=== PATIENT | female | born 1970 | race Caucasian/White ===

== ENCOUNTER 2016-12-14 10:18 | Emergency (ER) | payer OTHER ==
--- NOTE | 2016-12-14 13:46 | DIAGNOSTIC IMAGING REPORT ---
PROCEDURE: CT LOWER EXT W/CONTRAST-RIGHT INDICATION: SWELLING, TENDER, WARMTH, ABNORMAL US TECHNIQUE: 125 ml of Isovue 300 were administered IV and axial scans obtained from the right hip to the right knee. COMPARISON: 98 venous duplex ultrasound 12/14/2016. FINDINGS: There are several right inguinal lymph nodes, largest 1.3 x 2.5 cm. There are also some mildly prominent right external iliac lymph nodes. There is mild subcutaneous edema of the right thigh and right buttock. No evidence of a mass or fluid collection. Musculature is unremarkable. Vasculature is unremarkable. Bones are unremarkable. Pelvic structures are unremarkable. IMPRESSION: 1. No evidence of an abscess or fluid collection 2. Mild right inguinal adenopathy 3. Right thigh subcutaneous edema 4. Results discussed with Dr. Crespo
--- NOTE | 2016-12-14 14:24 | ED CLINICAL REPORT ---
Clinical Report - Physicians/Mid Levels [facility] [address] [place] [address] 12/14/2016 10:21 Patient: FELICIANO BLACKMAN Time Seen: 1050. Arrived- By private vehicle. Historian- patient. HISTORY OF PRESENT ILLNESS Chief Complaint: LOWER EXTREMITY SWELLING. This started past few days and is still present. It was abrupt in onset and has been constant but is not gone now. Severity is described as being severe. The quality is noted to be sharp. No radiation. The patient has had redness and swelling. She has had difficulty walking. No bladder dysfunction, bowel dysfunction, sensory loss or motor loss. Patient denies an injury. Similar symptoms previously: None. Recent medical care: The patient was seen recently in a clinic. ( otal to the emergency department for evaluation of DVT). REVIEW OF SYSTEMS No chest pain or difficulty breathing. All systems otherwise negative, except as recorded above. PAST HISTORY See nurses notes. Medications: Spironolactone Oral 50 mg, daily. Gabapentin Oral 800mg TID . Lasix Oral 40 mg, daily. Levothyroxine Sodium Oral 100 mcg, daily. Methadone 85mg daily . Allergies: Acetaminophen. (liver disease- not suppposed to take it ) Haldol. (tongue swells up ) PCN.(rash) Tylenol #3 - rash. SOCIAL HISTORY Smoker- current status unknown. History of drug use: marijuana. No alcohol use. No recent travel. Is a local resident. ADDITIONAL NOTES The nursing notes have been reviewed. PHYSICAL EXAM Vital Signs: 12/14/2016 10:25 BP: 140/92. HR: 93. RR: 22. O2 saturation: 97%. Temp: 98.7 F. Pain level now: 9/10. Oxygen saturation normal. Appearance: Alert. Oriented X3. No acute distress. Eyes: Pupils equal, round and reactive to light. Eyes normal inspection. ENT: Ears normal. Nose normal. Pharynx normal. Neck: Normal inspection. Neck supple. CVS: Normal heart rate and rhythm. Heart sounds normal. Respiratory: No respiratory distress. Breath sounds normal. Abdomen: Soft and nontender. No organomegaly. Back: Normal inspection. No tenderness. ROM normal. Skin: Skin intact. Skin warm and dry. Normal skin color. Normal skin turgor. Extremities: (isolated swelling, warmth, erythema to the medial aspect of the right lower extremity. Extends to the mid thigh and goes up to the proximal thigh. There is indurated. No crepitus. No signs of Imtiaz's gangrene. No masses. No area of fluctuance. Compartments are soft. Patient is neurovascular intact.). Extremities otherwise negative. Neuro: Oriented X 3. No motor deficit. No sensory deficit. LABS, X-RAYS, AND EKG Lower Extremity Sonography: PROCEDURE: US VENOUS - RIGHT EXT INDICATION: PAIN AND SWELLING TECHNIQUE: Duplex sonography of the deep venous system in the right lower extremity was performed. Compression and augmentation techniques were used. COMPARISON: None. FINDINGS: Compression maneuver and common femoral vein was limited secondary to some moderate edema and uncooperative patient. Each interrogated segment of deep vein from the common femoral vein into the calf veins demonstrates normal compressibility, augmentation and/or color Doppler flow without filling defect. Multiple enlarged groin lymph nodes are visible. There is a fluid-containing tract from the skin surface to the region of the right common femoral vein. No other perivascular fluid in the soft tissues. No evidence of pseudoaneurysm or signs of AV fistula. IMPRESSION: 1. No deep venous thrombosis in the right lower extremity. 2. Fluid-containing tract from the skin surface to the underlying common femoral vein without evidence of venous thrombosis or AV fistula. The exam was performed by a pyrotechnician. The study was independently viewed by me and interpreted by the radiologist. The study was discussed with the radiologist (Via PACS). Note - Special Studies: PROCEDURE: CT LOWER EXT W/CONTRAST-RIGHT INDICATION: SWELLING, TENDER, WARMTH, ABNORMAL US TECHNIQUE: 125 ml of Isovue 300 were administered IV and axial scans obtained from the right hip to the right knee. COMPARISON: 98 venous duplex ultrasound 12/14/2016. FINDINGS: There are several right inguinal lymph nodes, largest 1.3 x 2.5 cm. There are also some mildly prominent right external iliac lymph nodes. There is mild subcutaneous edema of the right thigh and right buttock. No evidence of a mass or fluid collection. Musculature is unremarkable. Vasculature is unremarkable. Bones are unremarkable. Pelvic structures are unremarkable. IMPRESSION: 1. No evidence of an abscess or fluid collection 2. Mild right inguinal adenopathy 3. Right thigh subcutaneous edema interpreted by radiology. Reviewed by me. Agree with findings. Discussed via phone and packs. Laboratory Tests: UA-Culture if indicated: (ERIC: 12/14/2016 10:25) ( [facility] 12/14/2016 11:07) Final results Test Result Flag Units (Reference) URINE COLOR YELLOW URINE APPEARANCE CLEAR URINE GLUCOSE NEGATIVE (NEGATIVE) URINE BILIRUBIN NEGATIVE (NEGATIVE) URINE KETONE NEGATIVE (NEGATIVE) URINE SPECIFIC GRAVITY 1.010 (1.010-1.030) URINE PH 7.5 (5.0-8.0) URINE PROTEIN NEGATIVE (NEGATIVE) URINE UROBILINOGEN 1.0 EU/dL (0.2-1.0) URINE NITRITE NEGATIVE (NEGATIVE) URINE BLOOD NEGATIVE (NEGATIVE) URINE LEUK ESTERASE NEGATIVE (NEGATIVE) URINE RBC NONE SEEN rbc/hpf (0-1) URINE WBC NONE SEEN wbc/hpf (0-1) URINE EPITHELIAL CELLS NONE SEEN EPI/hpf (0-5) URINE BACTERIA NONE SEEN (NONE SEEN) URINE COMMENT CULT NOT INDICATED URINE CULTURES ARE SET-UP BASED ON THE FOLLOWING CRITERIA:POSITIVE NITRITEPOSITIVE LEUKOCYTE ESTERASEGREATER THAN 10 WHITE BLOOD CELLSMODERATE (2+) OR GREATER BACTERIA Urine: (ERIC: 12/14/2016 10:25) ( [facility] 12/14/2016 11:29) Final results Test Result Flag Units (Reference) URINE NEGATIVE CBC w Diff: (ERIC: 12/14/2016 10:52) ( [facility] 12/14/2016 12:07) Final results Test Result Flag Units (Reference) WHITE BLOOD COUNT 5.4 K/uL (4.5-11.5) RED BLOOD COUNT 3.74 L M/uL (4.00-5.20) HEMOGLOBIN 9.6 L gm/dL (12.0-16.0) HEMATOCRIT 29.2 L % (36.0-46.0) MEAN CELL VOLUME 78 L fL (80-100) MEAN CORPUSCULAR HGB 26 pg (26-34) MEAN CORPUSCULAR HGB CONC 33 g/dL (31-37) RED CELL DISTRIBUTION WIDTH 21.2 H % (11.6-14.8) PLATELET COUNT 80 L K/uL (150-400) NEUTROPHIL % 68.7 % (50-75) LYMPH % 18.2 L % (25-40) MONO % 8.8 % (3-14) EOSINOPHIL % 3.3 % (0-4) BASOPHIL % 1.0 % (0-2) RBC MORPHOLOGY 3+ ANISOCYTOSIS~~1+ OVALOCYTES~~1+ SCHISTOCYTES~~1+ HYPOCHROMIA~~PLTS DEC~~GIANT PLTS SED RATE WESTERGREN 41 H mm/hr (0-20) Lactate, Serum: (ERIC: 12/14/2016 11:15) ( [facility] 12/14/2016 12:24) Final results Test Result Flag Units (Reference) LACTIC ACID 1.2 mmol/L (0.4-2.0) BNP: (ERIC: 12/14/2016 11:15) ( [facility] 12/14/2016 12:07) Final results Test Result Flag Units (Reference) B-TYPE NATRIURETIC PEPTIDE 44.8 pg/ml (5-100) CMP: (ERIC: 12/14/2016 10:52) ( [facility] 12/14/2016 11:42) Final results Test Result Flag Units (Reference) GLUCOSE 105 mg/dL (70-110) BUN 9 mg/dL (7-18) CREATININE 0.7 mg/dL (0.6-1.3) Estimated GFR >60 mL/min Estimated GFR- >60 mL/min Note: Persistent reduction over 3 months in eGFR<60 mL/min/1.73 m2 defines CKD. Patients with eGFR values>=60 mL/min/1.73 m2 may also have CKD if evidence ofpersistent proteinuria. Additional information may be foundat [email or web address].org. SODIUM 141 mmol/L (136-145) POTASSIUM 4.5 mmol/L (3.5-5.1) CHLORIDE 106 mmol/L (98-107) CARBON DIOXIDE 26 mmol/L (21-32) CALCIUM 8.1 L mg/dL (8.5-10.1) TOTAL PROTEIN 7.7 g/dL (6.4-8.2) ALBUMIN 2.7 L g/dL (3.3-5.0) BILIRUBIN, TOTAL 0.4 mg/dL (0.0-1.0) ALKALINE PHOSPHATASE 200 H U/L (46-116) AST (SGOT) 56 H U/L (15-37) ALT (SGPT) 42 U/L (12-78) TROPONIN I <0.05 ng/mL (0.00-1.5) TROPONIN REFERENCE RANGE:<0.1 NEGATIVE0.1-1.5 INDETERMINANT>1.5 POSITIVE C-REACTIVE PROTEIN 1.3 H mg/dL (0.0-0.9) . PROGRESS AND PROCEDURES Course of Care: The patient is a pleasant 46 her old female. Very large right-sided leg swelling and pain. At this time differential diagnosis includes cellulitis versus abscess versus DVT. Pain medication as been offered. Patient is agreeable to the treatment plan as far as for workup. We'll be signing patient with ultrasound and laboratory studies. The patient's workup was remarkable for the findings above. Patient with a tract noted. Will be concern for the tract going deeper into the patient's pelvis. Would also be concerned for other signs of infection such as gangrene and free air. Because of the patient's pain level and area of infection,would like to evaluate with CT scan with contrast. Patient is agreeable to treatment plan. The rest of the patient's workup is noteo be unremarkable. CT scan does not show any significant signs of deeper infection or mass. Patient does have edema noted on CT scan. The rest of the findings are noted as above. Patient be treated with antibiotics. Patient is nontoxic and in no acute distress. Do not feel patient is septic. Because the patient's negative workup here in emergency department and lack of systemic findings, the patient is stable outpatient candidate. Patient is reliable. Discussed with patient her workup here in emergency department including diagnosis, home care, follow-up, and return precautions. All questions have been answered. The patient expressed understanding of these instructions and was agreeable to that. Disposition: Discharged. Condition: good. CLINICAL IMPRESSION Acute right thigh pain. Cellulitis of the right thigh. INSTRUCTIONS Warnings: SEDATIVE MEDICATION: You were given sedative medication during your visit. Do not drive or operate dangerous machinery. CONTROLLED SUBSTANCE WARNINGS. GENERAL WARNINGS: Return or contact your physician immediately if your condition worsens or changes unexpectedly, if not improving as expected, or if other problems arise. Specifically return if pain, vomiting, bleeding, breathing difficulty or fever. Your Current Medications: CONTINUE TAKING THE FOLLOWING MEDICATIONS: Gabapentin Oral : 800mg TID. Lasix Oral : 40 mg daily. Levothyroxine Sodium Oral : 100 mcg daily. Methadone* : 85mg daily. Spironolactone Oral : 50 mg daily. Prescription Medications: Doxycycline 100 mg: Take 1 capsule orally every 12 hours for 10 days. No refill. (disp 20 caps) morphine sulfate immediate release 15 mg tabs. take PO as needed for pain every 8 hours as needed. Disp 6 tabs. No refills. Substitution allowed. Follow-up: Return to the emergency department as needed. Follow up with your doctor in two days. Reason for referral: recheck today's concerns. Summary of care provided to patient via paper. Screening today revealed the patient's blood pressure to be in the normal range. The patient should follow up with a primary care provider for blood pressure management. Understanding of the discharge instructions verbalized by patient. (Electronically signed by Frank Crespo Dr. 12/18/2016 16:43)
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
--- NOTE | 2016-12-14 14:24 | ED ORDER SUMMARY ---
..... Patient: FELICIANO BLACKMAN OrderSheet VisitID: [id number] [place] [address] 46y, F Registration Date/Time: 12/14/2016 ORDER SHEET Weight: 90.7 kg (stated) Allergies: Haldol, PCN, Tylenol #3 - rash, Acetaminophen GENERAL ORDERS: UA-Culture if indicated Urgent (10:41 12/14/2016 DDean R.N. per protocol) (Ack 10:46 Charissa LA TechQuin) (11:11 DDean R.N.) US Venous Right Urgent (11:03 12/14/2016 Red Lr) (Ack 11:11 Charissa Farrell) (12:05 DDean R.N.) CBC w Diff Urgent (11:12/14/2016 Red Lr) (Ack 11:11 Charissa Farrell) (11:11 DDean R.N.) CMP Urgent (11:04 12/14/2016 Red Lr) (Ack 11:11 Charissa Farrell) (11:11 DDean R.N.) Sed Rate Urgent (11:04 12/14/2016 Red Lr) (Ack 11:11 Charissa Farrell) (11:11 DDean R.N.) CRP Urgent (11:12/14/2016 Red Lr) (Ack 11:11 Charissa Farrell) (11:12 DDean R.N.) Troponin-I Urgent (11:04 12/14/2016 Red Lr) (Ack 11:11 Charissa Farrell) (11:11 DDean R.N.) BNP Urgent (11:12/14/2016 Red Lr) (Ack 11:11 Charissa Farrell) (11:11 DDean R.N.) Urine Urgent (11:12/14/2016 Red Lr) (Ack 11:11 Charissa Farrell) (11:11 DDean R.N.) Pulse oximeter (11:12/14/2016 Red Lr) (Ack 11:11 Charissa ER Tech1) (11:11 DDean R.N.) Lactate, Serum Urgent (11:04 12/14/2016 Red Lr) (Ack 11:11 Charissa ER Tech1) (11:27 DDean R.N.) Urine Drug Screen Urgent (12:54 12/14/2016 Red Lr) (Ack 12:57 Charissa ER Tech1) (13:00 DDean R.N.) CT Lower Extremity With Contrast - Right Urgent (12:55 12/14/2016 Red Lr) (Ack 12:57 Charissa ER Tech1) (13:23 RFay) MEDICATION ORDERS: Doxycycline Hyclate PO 100 mg (NOW) (14:23 12/14/2016 Red Lr) (Ack 14:34 DDean R.N.) IV FLUIDS: Morphine IV 4 mg (HIGH ALERT MEDICATION, NOW) (11:03 12/14/2016 Red Lr) (Ack 11:28 DDean R.N.) (12:05 DDean R.N.) IV Saline Lock (11:04 12/14/2016 Red Lr) (Ack 11:28 DDean R.N.) (12:05 DDean R.N.) Dilaudid IV 1 mg (once now. may repeat in 15 minutes if pain > 5/10 ) (12:53 12/14/2016 Red Lr) (12:59 DDean R.N.) ORDER SHEET NOTES: [Electronically signed by Casi Navarrete R.N. (14:51 12/14/2016)] [Electronically signed by Frank Crespo Dr. (16:43 12/18/2016)] [Electronically locked/signed by Casi Navarrete R.N. (14:51 12/14/2016)]
--- NOTE | 2016-12-14 14:24 | ED ORDER SUMMARY ---
..... Patient: FELICIANO BLACKMAN OrderSheet [facility] VisitID: [id number] [place] [address] 46y, F Registration Date/Time: 12/14/2016 ORDER SHEET Weight: 90.7 kg (stated) Allergies: Haldol, PCN, Tylenol #3 - rash, Acetaminophen GENERAL ORDERS: UA-Culture if indicated Urgent (10:41 12/14/2016 DDean R.N. per protocol) (Ack 10:46 Charissa LA TechQuin) (11:11 DDean R.N.) US Venous Right Urgent (11:03 12/14/2016 Red Lr) (Ack 11:11 Charissa Farrell) (12:05 DDean R.N.) CBC w Diff Urgent (11:12/14/2016 Red Lr) (Ack 11:11 Charissa Farrell) (11:11 DDean R.N.) CMP Urgent (11:04 12/14/2016 Red Lr) (Ack 11:11 Charissa Farrell) (11:11 DDean R.N.) Sed Rate Urgent (11:04 12/14/2016 Red Lr) (Ack 11:11 Charissa Farrell) (11:11 DDean R.N.) CRP Urgent (11:12/14/2016 Red Lr) (Ack 11:11 Charissa Farrell) (11:12 DDean R.N.) Troponin-I Urgent (11:04 12/14/2016 Red Lr) (Ack 11:11 Charissa Farrell) (11:11 DDean R.N.) BNP Urgent (11:12/14/2016 Red Lr) (Ack 11:11 Charissa Farrell) (11:11 DDean R.N.) Urine Urgent (11:12/14/2016 Red Lr) (Ack 11:11 Charissa Farrell) (11:11 DDean R.N.) Pulse oximeter (11:12/14/2016 Red Lr) (Ack 11:11 Charissa ER Tech1) (11:11 DDean R.N.) Lactate, Serum Urgent (11:04 12/14/2016 Red Lr) (Ack 11:11 Charissa ER Tech1) (11:27 DDean R.N.) Urine Drug Screen Urgent (12:54 12/14/2016 Red Lr) (Ack 12:57 Charissa ER Tech1) (13:00 DDean R.N.) CT Lower Extremity With Contrast - Right Urgent (12:55 12/14/2016 Red Lr) (Ack 12:57 Charissa ER Tech1) (13:23 RFay) MEDICATION ORDERS: Doxycycline Hyclate PO 100 mg (NOW) (14:23 12/14/2016 Red Lr) (Ack 14:34 DDean R.N.) IV FLUIDS: Morphine IV 4 mg (HIGH ALERT MEDICATION, NOW) (11:03 12/14/2016 Red Lr) (Ack 11:28 DDean R.N.) (12:05 DDean R.N.) IV Saline Lock (11:04 12/14/2016 Red Lr) (Ack 11:28 DDean R.N.) (12:05 DDean R.N.) Dilaudid IV 1 mg (once now. may repeat in 15 minutes if pain > 5/10 ) (12:53 12/14/2016 Red Lr) (12:59 DDean R.N.) ORDER SHEET NOTES: [Electronically signed by Casi Navarrete R.N. (14:51 12/14/2016)] [Electronically signed by Frank Crespo Dr. (16:43 12/18/2016)] [Electronically locked/signed by Casi Navarrete R.N. (14:51 12/14/2016)]
--- NOTE | 2016-12-14 15:28 | DIAGNOSTIC IMAGING REPORT ---
PROCEDURE: US VENOUS - RIGHT EXT INDICATION: PAIN AND SWELLING TECHNIQUE: Duplex sonography of the deep venous system in the right lower extremity was performed. Compression and augmentation techniques were used. COMPARISON: None. FINDINGS: Compression maneuver and common femoral vein was limited secondary to some moderate edema and uncooperative patient. Each interrogated segment of deep vein from the common femoral vein into the calf veins demonstrates normal compressibility, augmentation and/or color Doppler flow without filling defect. Multiple enlarged groin lymph nodes are visible. There is a fluid-containing tract from the skin surface to the region of the right common femoral vein. No other perivascular fluid in the soft tissues. No evidence of pseudoaneurysm or signs of AV fistula. IMPRESSION: 1. No deep venous thrombosis in the right lower extremity. 2. Fluid-containing tract from the skin surface to the underlying common femoral vein without evidence of venous thrombosis or AV fistula. 3. Preliminary results given by the technologist to the emergency room provider.
--- NOTE | 2016-12-18 16:43 | ED MAR SUMMARY ---
..... Medication Administration Record Formerly [facility] [address] [address] Patient: FELICIANO BLACKMAN Visit ID: [id number] 46y, F Weight: 90.7 kg Height/Length: 62 in BMI: 36.6 ALLERGIES: Acetaminophen, Haldol, PCN, Tylenol #3 - rash Given 11:55 12/14/2016 Casi Navarrete R.N. Medication Administered: MORPHINE [IVP], Dose: 4 mg IVP over 1 minute(s), Site: #1. Medication Ordered: Morphine IV 4 mg (HIGH ALERT MEDICATION, NOW). Given 12:54 12/14/2016 Casi Navarrete R.N. Medication Administered: DILAUDID [IVP] (HYDROMORPHONE HCL PF), Dose: 1 mg IVP over 1 minute(s), Site: #1 right wrist. Medication Ordered: Dilaudid IV 1 mg (once now. may repeat in 15 minutes if pain > 5/10 ). Given 13:36 12/14/2016 Casi Navarrete R.N. Medication Administered: DILAUDID [IVP] (HYDROMORPHONE HCL PF), Dose: 1 mg IVP over 1 minute(s), Site: #1 right wrist. Medication Ordered: Dilaudid IV 1 mg (once now. may repeat in 15 minutes if pain > 5/10 ).
--- NOTE | 2016-12-18 16:43 | ED DISCHARGE INSTRUCTIONS ---
Patient: FELICIANO BLACKMAN General Instructions [facility] VisitID: [id number] [place] [address] 46y, F Registration Date/Time: 12/14/2016 Acute right thigh pain. Cellulitis of the right thigh. INSTRUCTIONS Warnings: SEDATIVE MEDICATION: You were given sedative medication during your visit. Do not drive or operate dangerous machinery. CONTROLLED SUBSTANCE WARNINGS. GENERAL WARNINGS: Return or contact your physician immediately if your condition worsens or changes unexpectedly, if not improving as expected, or if other problems arise. Specifically return if pain, vomiting, bleeding, breathing difficulty or fever. Your Current Medications: CONTINUE TAKING THE FOLLOWING MEDICATIONS: Gabapentin Oral : 800mg TID. Lasix Oral : 40 mg daily. Levothyroxine Sodium Oral : 100 mcg daily. Methadone* : 85mg daily. Spironolactone Oral : 50 mg daily. Prescription Medications: Doxycycline 100 mg: Take 1 capsule orally every 12 hours for 10 days. No refill. (disp 20 caps) morphine sulfate immediate release 15 mg tabs. take PO as needed for pain every 8 hours as needed. Disp 6 tabs. No refills. Substitution allowed. Follow-up: Return to the emergency department as needed. Follow up with your doctor in two days. Reason for referral: recheck today's concerns. Summary of care provided to patient via paper. Screening today revealed the patient's blood pressure to be in the normal range. The patient should follow up with a primary care provider for blood pressure management. Understanding of the discharge instructions verbalized by patient. ADDITIONAL INFORMATION Doxycycline Monohydrate Oral tablet What is this medicine? DOXYCYCLINE (dox sarah damon) is a tetracycline antibiotic. It kills certain bacteria or stops their growth. It is used to treat many kinds of infections, like dental, skin, respiratory, and urinary tract infections. It also treats acne, Lyme disease, malaria, and certain sexually transmitted infections. How should I use this medicine? Take this medicine by mouth with a full glass of water. Follow the directions on the prescription label. It is best to take this medicine without food, but if it upsets your stomach take it with food. Take your medicine at regular intervals. Do not take your medicine more often than directed. Take all of your medicine as directed even if you think you are better. Do not skip doses or stop your medicine early. Talk to your 911 emergency services dispatcher regarding the use of this medicine in children. Special care may be needed. While this drug may be prescribed for children as young as 8 years old for selected conditions, precautions do apply. What side effects may I notice from receiving this medicine? Side effects that you should report to your doctor or health health care recruiter as soon as possible: allergic reactions like skin rash, itching or hives, swelling of the face, lips, or tongue difficulty breathing fever itching in the rectal or genital area pain on swallowing redness, blistering, peeling or loosening of the skin, including inside the mouth severe stomach pain or cramps unusual bleeding or bruising unusually weak or tired yellowing of the eyes or skin Side effects that usually do not require medical attention (report to your doctor or health health care recruiter if they continue or are bothersome): diarrhea loss of appetite nausea, vomiting What may interact with this medicine? antacids barbiturates control pills bismuth subsalicylate carbamazepine methoxyflurane other antibiotics phenytoin vitamins that contain iron warfarin What if I miss a dose? If you miss a dose, take it as soon as you can. If it is almost time for your next dose, take only that dose. Do not take double or extra doses. Where should I keep my medicine? Keep out of the reach of children. Store at room temperature, below 30 degrees C (86 degrees F). Protect from light. Keep container tightly closed. Throw away any unused medicine after the expiration date. Taking this medicine after the expiration date can make you seriously ill. What should I tell my health care provider before I take this medicine? They need to know if you have any of these conditions: liver disease long exposure to sunlight like working outdoors stomach problems like colitis an unusual or allergic reaction to doxycycline, tetracycline antibiotics, other medicines, foods, dyes, or preservatives or trying to get breast-feeding What should I watch for while using this medicine? Tell your doctor or health health care recruiter if your symptoms do not improve. Do not treat diarrhea with over the counter products. Contact your doctor if you have diarrhea that lasts more than 2 days or if it is severe and watery. Do not take this medicine just before going to bed. It may not dissolve properly when you lay down and can cause pain in your throat. Drink plenty of fluids while taking this medicine to also help reduce irritation in your throat. This medicine can make you more sensitive to the sun. Keep out of the sun. If you cannot avoid being in the sun, wear protective clothing and use sunscreen. Do not use sun lamps or tanning beds/booths. control pills may not work properly while you are taking this medicine. Talk to your doctor about using an extra method of control. If you are being treated for a sexually transmitted infection, avoid sexual contact until you have finished your treatment. Your sexual partner may also need treatment. Avoid antacids, aluminum, calcium, magnesium, and iron products for 4 hours before and 2 hours after taking a dose of this medicine. If you are using this medicine to prevent malaria, you should still protect yourself from contact with mosquitos. Stay in screened-in areas, use mosquito nets, keep your body covered, and use an insect repellent. You have been given the following additional information: Doxycycline Monohydrate Oral tablet (Electronically signed by Frank Crespo Dr. 12/18/2016 16:43)
--- NOTE | 2016-12-18 16:43 | ED MAR SUMMARY ---
..... Medication Administration Record [facility] [address] [place] [address] Patient: FELICIANO BLACKMAN Visit ID: [id number] 46y, F Weight: 90.7 kg Height/Length: 62 in BMI: 36.6 ALLERGIES: Acetaminophen, Haldol, PCN, Tylenol #3 - rash Given 11:55 12/14/2016 Casi Navarrete R.N. Medication Administered: MORPHINE [IVP], Dose: 4 mg IVP over 1 minute(s), Site: #1. Medication Ordered: Morphine IV 4 mg (HIGH ALERT MEDICATION, NOW). Given 12:54 12/14/2016 Casi Navarrete R.N. Medication Administered: DILAUDID [IVP] (HYDROMORPHONE HCL PF), Dose: 1 mg IVP over 1 minute(s), Site: #1 right wrist. Medication Ordered: Dilaudid IV 1 mg (once now. may repeat in 15 minutes if pain > 5/10 ). Given 13:36 12/14/2016 Casi Navarrete R.N. Medication Administered: DILAUDID [IVP] (HYDROMORPHONE HCL PF), Dose: 1 mg IVP over 1 minute(s), Site: #1 right wrist. Medication Ordered: Dilaudid IV 1 mg (once now. may repeat in 15 minutes if pain > 5/10 ).
--- NOTE | 2016-12-18 16:43 | ED DISCHARGE INSTRUCTIONS ---
Patient: FELICIANO BLACKMAN General Instructions Formerly [facility] VisitID: [id number] [place] [address] 46y, F Registration Date/Time: 12/14/2016 Acute right thigh pain. Cellulitis of the right thigh. INSTRUCTIONS Warnings: SEDATIVE MEDICATION: You were given sedative medication during your visit. Do not drive or operate dangerous machinery. CONTROLLED SUBSTANCE WARNINGS. GENERAL WARNINGS: Return or contact your physician immediately if your condition worsens or changes unexpectedly, if not improving as expected, or if other problems arise. Specifically return if pain, vomiting, bleeding, breathing difficulty or fever. Your Current Medications: CONTINUE TAKING THE FOLLOWING MEDICATIONS: Gabapentin Oral : 800mg TID. Lasix Oral : 40 mg daily. Levothyroxine Sodium Oral : 100 mcg daily. Methadone* : 85mg daily. Spironolactone Oral : 50 mg daily. Prescription Medications: Doxycycline 100 mg: Take 1 capsule orally every 12 hours for 10 days. No refill. (disp 20 caps) morphine sulfate immediate release 15 mg tabs. take PO as needed for pain every 8 hours as needed. Disp 6 tabs. No refills. Substitution allowed. Follow-up: Return to the emergency department as needed. Follow up with your doctor in two days. Reason for referral: recheck today's concerns. Summary of care provided to patient via paper. Screening today revealed the patient's blood pressure to be in the normal range. The patient should follow up with a primary care provider for blood pressure management. Understanding of the discharge instructions verbalized by patient. ADDITIONAL INFORMATION Doxycycline Monohydrate Oral tablet What is this medicine? DOXYCYCLINE (dox sarah damon) is a tetracycline antibiotic. It kills certain bacteria or stops their growth. It is used to treat many kinds of infections, like dental, skin, respiratory, and urinary tract infections. It also treats acne, Lyme disease, malaria, and certain sexually transmitted infections. How should I use this medicine? Take this medicine by mouth with a full glass of water. Follow the directions on the prescription label. It is best to take this medicine without food, but if it upsets your stomach take it with food. Take your medicine at regular intervals. Do not take your medicine more often than directed. Take all of your medicine as directed even if you think you are better. Do not skip doses or stop your medicine early. Talk to your elevators inspector regarding the use of this medicine in children. Special care may be needed. While this drug may be prescribed for children as young as 8 years old for selected conditions, precautions do apply. What side effects may I notice from receiving this medicine? Side effects that you should report to your doctor or health career counselor as soon as possible: allergic reactions like skin rash, itching or hives, swelling of the face, lips, or tongue difficulty breathing fever itching in the rectal or genital area pain on swallowing redness, blistering, peeling or loosening of the skin, including inside the mouth severe stomach pain or cramps unusual bleeding or bruising unusually weak or tired yellowing of the eyes or skin Side effects that usually do not require medical attention (report to your doctor or health career counselor if they continue or are bothersome): diarrhea loss of appetite nausea, vomiting What may interact with this medicine? antacids barbiturates control pills bismuth subsalicylate carbamazepine methoxyflurane other antibiotics phenytoin vitamins that contain iron warfarin What if I miss a dose? If you miss a dose, take it as soon as you can. If it is almost time for your next dose, take only that dose. Do not take double or extra doses. Where should I keep my medicine? Keep out of the reach of children. Store at room temperature, below 30 degrees C (86 degrees F). Protect from light. Keep container tightly closed. Throw away any unused medicine after the expiration date. Taking this medicine after the expiration date can make you seriously ill. What should I tell my health care provider before I take this medicine? They need to know if you have any of these conditions: liver disease long exposure to sunlight like working outdoors stomach problems like colitis an unusual or allergic reaction to doxycycline, tetracycline antibiotics, other medicines, foods, dyes, or preservatives or trying to get breast-feeding What should I watch for while using this medicine? Tell your doctor or health career counselor if your symptoms do not improve. Do not treat diarrhea with over the counter products. Contact your doctor if you have diarrhea that lasts more than 2 days or if it is severe and watery. Do not take this medicine just before going to bed. It may not dissolve properly when you lay down and can cause pain in your throat. Drink plenty of fluids while taking this medicine to also help reduce irritation in your throat. This medicine can make you more sensitive to the sun. Keep out of the sun. If you cannot avoid being in the sun, wear protective clothing and use sunscreen. Do not use sun lamps or tanning beds/booths. control pills may not work properly while you are taking this medicine. Talk to your doctor about using an extra method of control. If you are being treated for a sexually transmitted infection, avoid sexual contact until you have finished your treatment. Your sexual partner may also need treatment. Avoid antacids, aluminum, calcium, magnesium, and iron products for 4 hours before and 2 hours after taking a dose of this medicine. If you are using this medicine to prevent malaria, you should still protect yourself from contact with mosquitos. Stay in screened-in areas, use mosquito nets, keep your body covered, and use an insect repellent. You have been given the following additional information: Doxycycline Monohydrate Oral tablet (Electronically signed by Farnk Crespo Dr. 12/18/2016 16:43)
--- NOTE | 2016-12-18 16:43 | ED MED RECONCILIATION SUMMARY ---
Patient: FELICIANO BLACKMAN Medication Reconciliation Report [facility] VisitID: [id number] [address] [place] [address] 46y, F Registration Date/Time: 12/14/2016 Weight: 90.7 kg Height/Length: 62 in. BMI: 36.6 ALLERGIES: Acetaminophen, Haldol, PCN, Tylenol #3 - rash The patient's Home Medications are listed below: CONTINUE TAKING THE FOLLOWING MEDICATIONS: Gabapentin Oral 800mg TID Lasix Oral 40 mg, daily Levothyroxine Sodium Oral 100 mcg, daily Methadone 85mg daily Spironolactone Oral 50 mg, daily The source(s) of the original Home Medication information: Not obtained. The following Medications were given to the patient in the Emergency Department: Morphine [IVP] IVP 4 mg, administered: 12/14/2016 11:55:00 AM Dilaudid [IVP] IVP 1 mg, administered: 12/14/2016 12:54:00 PM Dilaudid [IVP] IVP 1 mg, administered: 12/14/2016 1:36:00 PM The following Medications were prescribed to the patient: morphine sulfate immediate release 15 mg tabs. take PO as needed for pain every 8 hours as needed. Disp 6 tabs. No refills. Substitution allowed. -- Frank Crespo Dr. Doxycycline 100 mg: Take 1 capsule orally every 12 hours for 10 days. No refill.(disp 20 caps) -- Frank Crespo Dr.
--- NOTE | 2016-12-18 16:43 | ED MED RECONCILIATION SUMMARY ---
Patient: FELICIANO BLACKMAN Medication Reconciliation Report [facility]erg[facility] VisitID: [id number] [address] [place] [address] 46y, F Registration Date/Time: 12/14/2016 Weight: 90.7 kg Height/Length: 62 in. BMI: 36.6 ALLERGIES: Acetaminophen, Haldol, PCN, Tylenol #3 - rash The patient's Home Medications are listed below: CONTINUE TAKING THE FOLLOWING MEDICATIONS: Gabapentin Oral 800mg TID Lasix Oral 40 mg, daily Levothyroxine Sodium Oral 100 mcg, daily Methadone 85mg daily Spironolactone Oral 50 mg, daily The source(s) of the original Home Medication information: Not obtained. The following Medications were given to the patient in the Emergency Department: Morphine [IVP] IVP 4 mg, administered: 12/14/2016 11:55:00 AM Dilaudid [IVP] IVP 1 mg, administered: 12/14/2016 12:54:00 PM Dilaudid [IVP] IVP 1 mg, administered: 12/14/2016 1:36:00 PM The following Medications were prescribed to the patient: morphine sulfate immediate release 15 mg tabs. take PO as needed for pain every 8 hours as needed. Disp 6 tabs. No refills. Substitution allowed. -- Frank Crespo Dr. Doxycycline 100 mg: Take 1 capsule orally every 12 hours for 10 days. No refill.(disp 20 caps) -- Frank Crespo Dr.
== END 2016-12-14 14:35 | disposition home or self-care (01) ==
LOC: ED SRH 10:18
DX: L03.115 Cellulitis of right lower limb (principal); M79.651 Pain in right thigh; F17.210 Nicotine dependence, cigarettes, uncomplicated; Z79.899 Other long term (current) drug therapy; Z88.8 Allergy status to other drugs, medicaments and biological substances; Z88.5 Allergy status to narcotic agent

== ENCOUNTER 2016-12-31 13:33 | Observation (INO) | payer OTHER ==
[~2016-12-31] VITALS: Ht 157.5 cm; Wt 92.3 kg
--- NOTE | 2016-12-31 19:24 | DIAGNOSTIC IMAGING REPORT ---
PROCEDURE: XR CHEST 1 VIEW INDICATION: PIC line placement. TECHNIQUE: Portable AP view (191 5 hours). COMPARISON: Compared to chest x-ray on 04/11/2016. FINDINGS: Right PIC line has been placed which ends in the upper right atrium. Lungs are clear. Heart and mediastinum are normal. Thorax is normal. IMPRESSION: 1. Right PIC line ends in the upper right atrium (may be withdrawn 2-3 cm). 2. Otherwise negative chest. 3. Findings called to emergency department (Naveed).
--- NOTE | 2016-12-31 22:15 | DIAGNOSTIC IMAGING REPORT ---
PROCEDURE: CT LOWER EXT W/CONTRAST-RIGHT CLINICAL INDICATION: TENDERNESS TECHNIQUE: 145 ml of Isovue 100 injected intravenously, axial images are obtained to the entire right thigh and lower pelvis with sagittal and coronal re-formations. COMPARISON: This is made to CT lower extremity on 12/14/2016. FINDINGS: There is persistent moderate subcutaneous edema of the right thigh with old or subacute injection sites in the right inguinal region. Underlying muscles appear normal. There is persistent mild right inguinal and external iliac adenopathy. There is no evidence of fluid collection or abscess. The deep venous structures of the right thigh and pelvis are seen, and are normal. There is no evidence of deep vein thrombosis. Osseous structures are normal and there is no evidence of osteomyelitis. IMPRESSION: 1. Persistent cellulitis of the right lower extremity with mild right inguinal and external iliac adenopathy. No significant change. 2. No evidence of fluid collection or abscess. 3. No evidence of deep vein thrombosis. 4. Findings discussed with RENAY Esquivel. All CT scans at this facility use dose modulation, iterative reconstruction, and/or weight-based dosing when appropriate to reduce radiation dose to as low as reasonably achievable.
--- NOTE | 2016-12-31 22:20 | ED ORDER SUMMARY ---
..... Patient: FELICIANO BLACKMAN OrderSheet [facility] VisitID: [id number] [place] [address] 46y, F Registration Date/Time: 12/31/2016 ORDER SHEET Weight: 68.0 kg (stated) Allergies: Acetaminophen, Haldol, PCN, Tylenol #3 - rash GENERAL ORDERS: CT Lower Extremity With Contrast - Right (erythema and edema of R inner thigh-see prior studies for comparison) Urgent (14:28 12/31/2016 SThom A.R.N.P.) (Ack 14:34 TBergley) (21:30 RFay) CBC w Diff Urgent (14:29 12/31/2016 SThom A.R.N.P.) (Ack 14:34 TBergley) (14:40 SReitz R.N.) CMP Urgent (14:12/31/2016 SThom A.R.N.P.) (Ack 14:34 TBergley) (14:40 SReitz R.N.) D-Dimer Urgent (14:29 12/31/2016 SThom A.R.N.P.) (Ack 14:34 TBergley) (14:40 SReitz R.N.) PICC Insertion (16:22 12/31/2016 SThom A.R.N.P.) (Ack 16:25 TBergley) (20:12 KPage-Kuchan R.N.) Blood Culture (No) (N/A) Urgent (16:22 12/31/2016 SThom A.R.N.P.) (Ack 16:25 TBergley) (20:12 KPage-Kuchan R.N.) Lactate, Serum Urgent (17:42 12/31/2016 SThom A.R.N.P.) (Ack 17:43 TBergley) (20:12 KPage-Kuchan R.N.) Chest 2V Urgent (18:58 12/31/2016 TBergley verbal order read back to SThom A.R.N.P.) (Ack 18:59 TBergley) (19:06 SThom A.R.N.P.) (Cancelled: Other19:06 SThom A.R.N.P.) Chest 1V Urgent (19:05 12/31/2016 SThom A.R.N.P.) (19:16 Patricia) MEDICATION ORDERS: IV FLUIDS: Dilaudid IV 1 mg (may split 0.5 and 0.5) (14:27 12/31/2016 SThom A.R.N.P.) (Ack 14:44 MWinterer R.N.) (15:54 SReitz R.N.) IV Saline Lock (14:29 12/31/2016 SThom A.R.N.P.) (Ack 14:44 MWinterer R.N.) (19:06 KPage-Kuchan R.N.) Ativan IV 0.5 mg (NOW) (16:18 12/31/2016 SReitz R.N. verbal order read back to SThom A.R.N.P.) (16:19 SReitz R.N.) Morphine IV 4 mg (HIGH ALERT MEDICATION, NOW) (16:37 12/31/2016 SThom A.R.N.P.) (Ack 16:50 SReitz R.N.) (16:54 SReitz R.N.) Morphine IV 4 mg (NOW) (18:22 12/31/2016 SReitz R.N. verbal order read back to SThom A.R.N.P.) (Ack 18:22 SReitz R.N.) (18:33 SReitz R.N.) Morphine IV 2 mg (NOW) (20:09 12/31/2016 SThom A.R.N.P.) (20:21 KPage-Kuchan R.N.) Morphine IV 2 mg (HIGH ALERT MEDICATION, NOW) (21:39 12/31/2016 SThom A.R.N.P.) (Ack 22:20 KPage-Kuchan R.N.) (22:29 KPage-Kuchan R.N.) Morphine IV 2 mg (NOW) (23:54 12/31/2016 SThom A.R.N.P.) (Ack 0:28 KPage-Kuchan R.N.) (0:34 KPage-Kuchan R.N.) ORDER SHEET NOTES: [Electronically signed by Crista Wing (00:16 01/01/2017)] [Electronically signed by Tristian Fajardo R.N. (00:56 01/01/2017)] [Electronically locked/signed by Tristian Fajardo R.N. (00:56 01/01/2017)]
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
--- NOTE | 2016-12-31 22:20 | ED ORDER SUMMARY ---
..... Patient: FELICIANO BLACKMAN OrderSheet [facility] VisitID: [id number] [place] [address] 46y, F Registration Date/Time: 12/31/2016 ORDER SHEET Weight: 68.0 kg (stated) Allergies: Acetaminophen, Haldol, PCN, Tylenol #3 - rash GENERAL ORDERS: CT Lower Extremity With Contrast - Right (erythema and edema of R inner thigh-see prior studies for comparison) Urgent (14:28 12/31/2016 SThom A.R.N.P.) (Ack 14:34 TBergley) (21:30 RFay) CBC w Diff Urgent (14:29 12/31/2016 SThom A.R.N.P.) (Ack 14:34 TBergley) (14:40 SReitz R.N.) CMP Urgent (14:12/31/2016 SThom A.R.N.P.) (Ack 14:34 TBergley) (14:40 SReitz R.N.) D-Dimer Urgent (14:29 12/31/2016 SThom A.R.N.P.) (Ack 14:34 TBergley) (14:40 SReitz R.N.) PICC Insertion (16:22 12/31/2016 SThom A.R.N.P.) (Ack 16:25 TBergley) (20:12 KPage-Kuchan R.N.) Blood Culture (No) (N/A) Urgent (16:22 12/31/2016 SThom A.R.N.P.) (Ack 16:25 TBergley) (20:12 KPage-Kuchan R.N.) Lactate, Serum Urgent (17:42 12/31/2016 SThom A.R.N.P.) (Ack 17:43 TBergley) (20:12 KPage-Kuchan R.N.) Chest 2V Urgent (18:58 12/31/2016 TBergley verbal order read back to SThom A.R.N.P.) (Ack 18:59 TBergley) (19:06 SThom A.R.N.P.) (Cancelled: Other19:06 SThom A.R.N.P.) Chest 1V Urgent (19:05 12/31/2016 SThom A.R.N.P.) (19:16 Patricia) MEDICATION ORDERS: IV FLUIDS: Dilaudid IV 1 mg (may split 0.5 and 0.5) (14:27 12/31/2016 SThom A.R.N.P.) (Ack 14:44 MWinterer R.N.) (15:54 SReitz R.N.) IV Saline Lock (14:29 12/31/2016 SThom A.R.N.P.) (Ack 14:44 MWinterer R.N.) (19:06 KPage-Kuchan R.N.) Ativan IV 0.5 mg (NOW) (16:18 12/31/2016 SReitz R.N. verbal order read back to SThom A.R.N.P.) (16:19 SReitz R.N.) Morphine IV 4 mg (HIGH ALERT MEDICATION, NOW) (16:37 12/31/2016 SThom A.R.N.P.) (Ack 16:50 SReitz R.N.) (16:54 SReitz R.N.) Morphine IV 4 mg (NOW) (18:22 12/31/2016 SReitz R.N. verbal order read back to SThom A.R.N.P.) (Ack 18:22 SReitz R.N.) (18:33 SReitz R.N.) Morphine IV 2 mg (NOW) (20:09 12/31/2016 SThom A.R.N.P.) (20:21 KPage-Kuchan R.N.) Morphine IV 2 mg (HIGH ALERT MEDICATION, NOW) (21:39 12/31/2016 SThom A.R.N.P.) (Ack 22:20 KPage-Kuchan R.N.) (22:29 KPage-Kuchan R.N.) Morphine IV 2 mg (NOW) (23:54 12/31/2016 SThom A.R.N.P.) (Ack 0:28 KPage-Kuchan R.N.) (0:34 KPage-Kuchan R.N.) ORDER SHEET NOTES: [Electronically signed by Crista Wing (00:16 01/01/2017)] [Electronically signed by Tristian Fajardo R.N. (00:56 01/01/2017)] [Electronically locked/signed by Tristian Fajardo R.N. (00:56 01/01/2017)]
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
[2017-01-01] VITALS (7 sets, daily range): BP systolic 124–146; BP diastolic 70–95
[2017-01-01] MEDS ORDERED: METHADONE H5 MG/5 ML (00:31)
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
--- NOTE | 2017-01-01 00:56 | ED MAR SUMMARY ---
..... Medication Administration Record [facility] [address] [place] [address] Patient: FELICIANO BLACKMAN Visit ID: [id number] 46y, F Weight: 68.0 kg Height/Length: 62 in BMI: 27.4 ALLERGIES: Acetaminophen, Haldol, PCN, Tylenol #3 - rash Given 15:54 12/31/2016 Rosalia Jean Baptiste R.N. Medication Administered: DILAUDID [IVP] (HYDROMORPHONE HCL PF), Dose: 1 mg IVP over 1 minute(s), Site: #1 left AC. Medication Ordered: Dilaudid IV 1 mg (may split 0.5 and 0.5). Given 16:19 12/31/2016 Rosalia Jean Baptiste R.N. Medication Administered: ATIVAN [IVP] (LORAZEPAM), Dose: 0.5 mg IVP over 1 minute(s), Site: #1 left AC. Medication Ordered: Ativan IV 0.5 mg (NOW). Given 16:54 12/31/2016 Rosalia Jean Baptiste R.N. Medication Administered: MORPHINE [IVP], Dose: 4 mg IVP over 1 minute(s), Site: #1 left AC. Medication Ordered: Morphine IV 4 mg (HIGH ALERT MEDICATION, NOW). Given 18:30 12/31/2016 Rosalia Jean Baptiste R.N. Medication Administered: MORPHINE [IVP], Dose: 4 mg IVP over 1 minute(s), Site: #1 left AC. Medication Ordered: Morphine IV 4 mg (NOW). Given 20:21 12/31/2016 Tristian Fajardo R.N. Medication Administered: MORPHINE [IVP], Dose: 2 mg IVP, Site: #3 PICC. Medication Ordered: Morphine IV 2 mg (NOW). Given 22:29 12/31/2016 Tristian Fajardo R.N. Medication Administered: MORPHINE [IVP], Dose: 2 mg IVP, Site: #3 PICC. Medication Ordered: Morphine IV 2 mg (HIGH ALERT MEDICATION, NOW). Given 00:34 01/01/2017 Page-Kuchan, Karyol, R.N. Medication Administered: MORPHINE [IVP], Dose: 2 mg IVP, Site: #3 PICC. Medication Ordered: Morphine IV 2 mg (NOW).
--- NOTE | 2017-01-01 00:56 | ED MAR SUMMARY ---
..... Medication Administration Record [facility] [address] [place] [address] Patient: FELICIANO BLACKMAN Visit ID: [id number] 46y, F Weight: 68.0 kg Height/Length: 62 in BMI: 27.4 ALLERGIES: Acetaminophen, Haldol, PCN, Tylenol #3 - rash Given 15:54 12/31/2016 Rosalia Jean Baptiste R.N. Medication Administered: DILAUDID [IVP] (HYDROMORPHONE HCL PF), Dose: 1 mg IVP over 1 minute(s), Site: #1 left AC. Medication Ordered: Dilaudid IV 1 mg (may split 0.5 and 0.5). Given 16:19 12/31/2016 Rosalia Jean Baptiste R.N. Medication Administered: ATIVAN [IVP] (LORAZEPAM), Dose: 0.5 mg IVP over 1 minute(s), Site: #1 left AC. Medication Ordered: Ativan IV 0.5 mg (NOW). Given 16:54 12/31/2016 Rosalia Jean Baptiste R.N. Medication Administered: MORPHINE [IVP], Dose: 4 mg IVP over 1 minute(s), Site: #1 left AC. Medication Ordered: Morphine IV 4 mg (HIGH ALERT MEDICATION, NOW). Given 18:30 12/31/2016 Rosalia Jean Baptiste R.N. Medication Administered: MORPHINE [IVP], Dose: 4 mg IVP over 1 minute(s), Site: #1 left AC. Medication Ordered: Morphine IV 4 mg (NOW). Given 20:21 12/31/2016 Tristian Fajardo R.N. Medication Administered: MORPHINE [IVP], Dose: 2 mg IVP, Site: #3 PICC. Medication Ordered: Morphine IV 2 mg (NOW). Given 22:29 12/31/2016 Tristian Fajardo R.N. Medication Administered: MORPHINE [IVP], Dose: 2 mg IVP, Site: #3 PICC. Medication Ordered: Morphine IV 2 mg (HIGH ALERT MEDICATION, NOW). Given 00:34 01/01/2017 Page-Kuchan, Karyol, R.N. Medication Administered: MORPHINE [IVP], Dose: 2 mg IVP, Site: #3 PICC. Medication Ordered: Morphine IV 2 mg (NOW).
--- NOTE | 2017-01-01 00:56 | ED MED RECONCILIATION SUMMARY ---
Patient: FELICIANO BLACKMAN Medication Reconciliation Report [facility] VisitID: [id number] [address] [place] [address] 46y, F Registration Date/Time: 12/31/2016 Weight: 68.0 kg Height/Length: 62 in. BMI: 27.4 ALLERGIES: Acetaminophen, Haldol, PCN, Tylenol #3 - rash The patient's Home Medications are listed below: THE FOLLOWING MEDICATIONS NEED TO BE RECONCILED: Gabapentin Oral 800mg TID Lasix Oral 80 mg Levothyroxine Sodium Oral 100 mcg, daily Methadone 85mg daily Spironolactone Oral 50 mg, daily The source(s) of the original Home Medication information: Not obtained. The following Medications were given to the patient in the Emergency Department: Dilaudid [IVP] IVP 1 mg, administered: 12/31/2016 3:54:00 PM Ativan [IVP] IVP 0.5 mg, administered: 12/31/2016 4:19:00 PM Morphine [IVP] IVP 4 mg, administered: 12/31/2016 4:54:00 PM Morphine [IVP] IVP 4 mg, administered: 12/31/2016 6:30:00 PM Morphine [IVP] IVP 2 mg, administered: 12/31/2016 8:21:00 PM Morphine [IVP] IVP 2 mg, administered: 12/31/2016 10:29:00 PM Morphine [IVP] IVP 2 mg, administered: 01/01/2017 12:34:00 AM The following Medications were prescribed to the patient: None.
--- NOTE | 2017-01-01 00:56 | ED DISCHARGE INSTRUCTIONS ---
Patient: FELICIANO BLACKMAN General Instructions [facility] VisitID: [id number] [place] [address] 46y, F Registration Date/Time: 12/31/2016 Cellulitis. Chronic anemia. Abnormal serum liver function test. INSTRUCTIONS Understanding of the discharge instructions verbalized by patient. ADDITIONAL INFORMATION Cellulitis You have an infection of the skin known as cellulitis. This usually starts with a scrape, cut, insect bite, blister or other opening in the skin which becomes infected. This is a serious condition. It must be watched closely to be sure the infection is not spreading. With antibiotic treatment, the size of the red area will gradually shrink in size until the skin returns to normal. This will take 7-10 days. The red area should never increase in size once the antibiotic medicine has been started. Occasionally, an infection will be resistant to one antibiotic and another one will have to be used. Home Care: 1) Limit the use of the affected part, since excess movement can cause the infection to spread. 2) If the infection is on your leg, walk as little as possible during the first few days of the treatment. Keep your leg elevated while sitting. This will reduce swelling. 3) Take all of the antibiotic medicine exactly as directed until it is gone. Be careful not to miss any doses, especially during the first seven days. Follow Up with your doctor or this facility as directed. Check the infected area daily for the warning signs listed below. Get Prompt Medical Attention if any of the following occur: -- Spreading area of redness -- Increasing swelling or pain -- Appearance of pus or drainage -- Fever over 100.4 F (38.0 C) oral, or over 101.4 F (38.6 C) rectal, after two days on antibiotics You have been given the following additional information: Cellulitis (Electronically signed by Crista Wing A.R.N.P. 01/01/2017 0:16)
--- NOTE | 2017-01-01 00:56 | ED MED RECONCILIATION SUMMARY ---
Patient: FELICIANO BLACKMAN Medication Reconciliation Report [facility] VisitID: [id number] [address] [place] [address] 46y, F Registration Date/Time: 12/31/2016 Weight: 68.0 kg Height/Length: 62 in. BMI: 27.4 ALLERGIES: Acetaminophen, Haldol, PCN, Tylenol #3 - rash The patient's Home Medications are listed below: THE FOLLOWING MEDICATIONS NEED TO BE RECONCILED: Gabapentin Oral 800mg TID Lasix Oral 80 mg Levothyroxine Sodium Oral 100 mcg, daily Methadone 85mg daily Spironolactone Oral 50 mg, daily The source(s) of the original Home Medication information: Not obtained. The following Medications were given to the patient in the Emergency Department: Dilaudid [IVP] IVP 1 mg, administered: 12/31/2016 3:54:00 PM Ativan [IVP] IVP 0.5 mg, administered: 12/31/2016 4:19:00 PM Morphine [IVP] IVP 4 mg, administered: 12/31/2016 4:54:00 PM Morphine [IVP] IVP 4 mg, administered: 12/31/2016 6:30:00 PM Morphine [IVP] IVP 2 mg, administered: 12/31/2016 8:21:00 PM Morphine [IVP] IVP 2 mg, administered: 12/31/2016 10:29:00 PM Morphine [IVP] IVP 2 mg, administered: 01/01/2017 12:34:00 AM The following Medications were prescribed to the patient: None.
--- NOTE | 2017-01-01 00:56 | ED DISCHARGE INSTRUCTIONS ---
Patient: FELICIANO BLACKMAN General Instructions [facility] VisitID: [id number] [place] [address] 46y, F Registration Date/Time: 12/31/2016 Cellulitis. Chronic anemia. Abnormal serum liver function test. INSTRUCTIONS Understanding of the discharge instructions verbalized by patient. ADDITIONAL INFORMATION Cellulitis You have an infection of the skin known as cellulitis. This usually starts with a scrape, cut, insect bite, blister or other opening in the skin which becomes infected. This is a serious condition. It must be watched closely to be sure the infection is not spreading. With antibiotic treatment, the size of the red area will gradually shrink in size until the skin returns to normal. This will take 7-10 days. The red area should never increase in size once the antibiotic medicine has been started. Occasionally, an infection will be resistant to one antibiotic and another one will have to be used. Home Care: 1) Limit the use of the affected part, since excess movement can cause the infection to spread. 2) If the infection is on your leg, walk as little as possible during the first few days of the treatment. Keep your leg elevated while sitting. This will reduce swelling. 3) Take all of the antibiotic medicine exactly as directed until it is gone. Be careful not to miss any doses, especially during the first seven days. Follow Up with your doctor or this facility as directed. Check the infected area daily for the warning signs listed below. Get Prompt Medical Attention if any of the following occur: -- Spreading area of redness -- Increasing swelling or pain -- Appearance of pus or drainage -- Fever over 100.4 F (38.0 C) oral, or over 101.4 F (38.6 C) rectal, after two days on antibiotics You have been given the following additional information: Cellulitis (Electronically signed by Crista Wing A.R.N.P. 01/01/2017 0:16)
--- NOTE | 2017-01-01 08:18 | Progress Note ---
Subjective General The patient is a 46-year-old white female with a significant past medical history of asthma, CAD, CHF, Narcotic dependance (prior use of Heroin-IVDA), chronic hepatitis C, thrombocytopenia, presenting with right upper medial thigh pain and redness. Patient had been seen by urgent care clinic over 2 weeks ago who diagnosed cellulitis and started patient on outpatient antibiotics. Patient reports that she's had minimal improvement and returns for further evaluations and treatment for thigh pain. She is also reported no significant lower extremity pain and spasm. The [facility] ER evaluation was consistent with cellulitis of the right medial thigh without imaged identified abscess. Secondary to the above, the patient was admitted by Armand De Leon M.D. for further evaluation and treatment. Still has pain in right leg area, no fever had chills last night, no vomiting but had nause, no dyspnea no chest pain Review of system: Constitutional: No fever no chills Respiratory system: Negative for shortness of breath chest pain MK S: Positive for pain in the right leg Physical Exam Vital Signs / I&Os Vital Signs Date Time Temp Pulse Resp B/P Pulse O2 O2 Flow FiO2 Ox Delivery Rate 01/01 0701 98.1 69 18 144/86 93 Room Air 01/01 0335 99.0 66 17 136/70 95 Room Air 01/01 0211 0.0 01/01 0055 99.0 64 18 146/85 95 Room Air I&O 01/01 0000 12/31 1600 12/31 0800 Intake Total Output Total Balance General Appearance Mild distress Lungs Clear to auscultation Neck Supple Cardiovascular Regular rate and rhythm, Normal S1 and S2, No murmurs, gallops, rubs Abdomen Normal bowel sounds, Soft, No tenderness Extremities No edema Skin erythema and edema regressed significantly from marked area Psych/Mental Status Mental status normal LAB Results Laboratory Tests 01/01 01/01 01/01 12/31 0603 0603 0600 2003 Blood Gas Cap Ioniz Calcium Calc Cancelled Chemistry Plasma Sodium (136 - 145 mmol/L) 138 Plasma Potassium (3.5 - 5.1 mmol/L) 4.2 Plasma Chloride (98 - 107 mmol/L) 106 CO2 (Enzymatic) (21 - 32 mmol/L) 25 BUN (7 - 18 mg/dL) 11 Creatinine (0.6 - 1.3 mg/dL) 0.7 Est GFR ( Amer) (mL/min) >60 Est GFR (Non-Af Amer) (mL/min) >60 Glucose (70 - 110 mg/dL) 112 Lactic Acid (0.4 - 2.0 mmol/L) 0.7 Plasma Calcium (8.5 - 10.1 mg/dL) 7.8 Cancelled Ionized Calcium Damian Pending Plasma Magnesium (1.8 - 2.4 mg/dL) 1.9 Total Bilirubin (0.0 - 1.0 mg/dL) 0.4 AST (15 - 37 U/L) 78 ALT (12 - 78 U/L) 59 Alkaline Phosphatase (46 - 116 U/L) 204 Total Protein (6.4 - 8.2 g/dL) 7.3 Cancelled Albumin (3.3 - 5.0 g/dL) 2.6 Hematology WBC (4.5 - 11.5 K/uL) 3.8 RBC (4.00 - 5.20 M/uL) 3.64 Hgb (12.0 - 16.0 gm/dL) 9.3 Hct (36.0 - 46.0 %) 28.5 MCV (80 - 100 fL) 78 MCH (26 - 34 pg) 26 RDW (11.6 - 14.8 %) 21.9 Neut % (Auto) (50 - 75 %) 65.3 Lymph % (Auto) (25 - 40 %) 19.6 Wilbarger % (Auto) (3 - 14 %) 12.1 Eos % (Auto) (0 - 4 %) 3.0 Baso % (Auto) (0 - 2 %) 0 Plt Count, EDTA (150 - 400 K/uL) 57 RBC Morphology (01222 A) 2+ ANISOCYTOSIS PUBS MCHC (31 - 37 g/dL) 33 Serology Hep Bs Antigen Pending Hep Bs Antibody Pending Hep B Core Total Ab Pending Hep B Core IgM Ab Pending Hepatitis C Antibody Pending 01/01 2004 Chemistry Plasma Sodium (136 - 145 mmol/L) 140 Plasma Potassium (3.5 - 5.1 mmol/L) 4.5 Plasma Chloride (98 - 107 mmol/L) 106 CO2 (Enzymatic) (21 - 32 mmol/L) 26 BUN (7 - 18 mg/dL) 12 Creatinine (0.6 - 1.3 mg/dL) 0.7 Est GFR ( Amer) (mL/min) >60 Est GFR (Non-Af Amer) (mL/min) >60 Glucose (70 - 110 mg/dL) 106 Plasma Calcium (8.5 - 10.1 mg/dL) 7.6 Total Bilirubin (0.0 - 1.0 mg/dL) 0.3 AST (15 - 37 U/L) 84 ALT (12 - 78 U/L) 61 Alkaline Phosphatase (46 - 116 U/L) 222 Total Protein (6.4 - 8.2 g/dL) 7.1 Albumin (3.3 - 5.0 g/dL) 2.7 Coagulation D-Dimer, Quantitative (0.27 - 0.52 ug/mLFEU) 0.61 Hematology WBC (4.5 - 11.5 K/uL) 4.4 RBC (4.00 - 5.20 M/uL) 3.68 Hgb (12.0 - 16.0 gm/dL) 9.4 Hct (36.0 - 46.0 %) 28.9 MCV (80 - 100 fL) 78 MCH (26 - 34 pg) 26 RDW (11.6 - 14.8 %) 21.9 Neut % (Auto) (50 - 75 %) 61.0 Lymph % (Auto) (25 - 40 %) 23.4 Wilbarger % (Auto) (3 - 14 %) 14.1 Eos % (Auto) (0 - 4 %) 1.4 Baso % (Auto) (0 - 2 %) 0.1 Plt Count, EDTA (150 - 400 K/uL) 60 RBC Morphology (15644 A) 2+ ANISOCYTOSIS PUBS MCHC (31 - 37 g/dL) 33 Microbiology Date/Time Procedure - Status Source Growth 01/01 0100 MRSA Screen - RECD NASAL 12/31 2009 Blood Culture - RECD BLOOD 01/01 2004 Blood Culture - RECD BLOOD Assessment and Plan Problem List 1. Cellulitis Plan contineu Vanco, improving will adjust pain meds since patient bcomes somnolant from narcotic per nurse report 2. Hypothyroid Plan contineu thyroid medicine 3. Congestive heart failure Plan stable continue current meds
[2017-01-02 02:47] VITALS: BP 122/82
[2017-01-02 06:43] VITALS: BP 130/81
[2017-01-02 10:32] VITALS: BP 125/68
[2017-01-02] MEDS ORDERED: TRAMADOL HCL50 MG PO (13:11)
[2017-01-02] MEDS ORDERED: METHADONE HCL10 MG PO (13:11)
[2017-01-02] MEDS ORDERED: CLEOCIN300 MG PO (13:11)
--- NOTE | 2017-01-02 13:46 | DISCHARGE SUMMARY ---
ADMIT DATE: 12/31/2016 DISCHARGE DATE: 01/02/2017 DISCHARGE DIAGNOSES: 1. Cellulitis of the right leg. 2. Congestive heart failure. 3. Hypothyroidism. BRIEF HISTORY: This is a 46-year-old white female who was admitted on 2016. The patient was seen in urgent care 2 weeks ago, diagnosed with cellulitis and started on outpatient antibiotics with minimal improvement, it was in the right thigh. Continued to have pain. This started as a redness and pain in the right thigh area, medial side and was started on oral antibiotics at that time, but no improvement, so the patient returned to the emergency. CT of the extremity showed no abscess information but the patient had adenopathy there. The patient also had a V/Q scan done, which was low probability for PE. HOSPITAL COURSE: The patient was diagnosed with cellulitis of the right lower extremity, was put on vancomycin and IV hydration. The patient improved during the hospital course and swelling decreased, even though the patient still continues to have pain there. The patient is doing well now except some pain in the right upper thigh. PHYSICAL EXAMINATION: VITAL SIGNS: Her temperature is 98.2, maximum 99.3, pulse is 97, respirations 18, blood pressure 125/68, and oxygen saturation 96% on room air. LUNGS: Clear to auscultation. HEART: Regular S1, S2. No murmur. No S3. ABDOMEN: Soft, nontender. Bowel sounds are positive. EXTREMITIES: No edema, cellulitis in the right thigh, receded from the marked area considerably, no erythema, no swelling, but the patient has moderate tenderness in the medial side of the thigh. DISCHARGE INSTRUCTIONS/MEDICATIONS: Disposition: The patient will be discharged home with clindamycin 300 mg 3 times a day for 7 more days and continue Lasix 80 mg daily, gabapentin 800 mg 3 times a day, methadone 30 mg t.i.d. I will give 1 dose for today since the patient cannot make it to the methadone clinic, and the spironolactone 50 mg daily and Levoxyl 100 mcg daily. I will also give the patient tramadol for pain control of the cellulitis. The patient will follow up with the [facility], within 1 week. We also had an echocardiogram done today that Dr. Elizabeth called me and echocardiogram was unremarkable. The patient does not have any acute changes.
--- NOTE | 2017-01-02 17:15 | DIAGNOSTIC IMAGING REPORT ---
REFERRING PHYSICIAN/PROVIDER: Armand De Leon MD CONSULTING SOCIAL SCIENCE TEACHER: Puneet Huntley MD INDICATION: hx of ivda, needing further evaluation. Procedure: A two-dimensional transthoracic echocardiogram with color flow Doppler was performed. The study quality was technically adequate. The patient was in normal sinus rhythm during the exam. Left Ventricle: The left ventricle is normal in size, wall thickness, and systolic function without any focal wall motion abnormalities. The ejection fraction is estimated to be 55-60%. Assessment of diastolic parameters indicates normal left ventricular diastolic function and normal filling pressures. Right Ventricle: The right ventricle is normal in size and function. Atria: The left atrial size is normal. Right atrial size is normal. The interatrial septum is intact with no evidence for an atrial septal defect. Mitral Valve: The mitral valve is normal in structure and function. There is trace mitral regurgitation. Aortic Valve: The aortic valve is trileaflet. The aortic valve opens well. There is trace aortic regurgitation. Tricuspid Valve: The tricuspid valve is normal in structure and function. Pulmonary artery pressures cannot be estimated because of the lack of a measurable TR jet velocity. Pulmonic Valve: The pulmonic valve is not well visualized. The pulmonic valve is not well seen, but is grossly normal. There is no pulmonic valvular regurgitation. There is no obvious valvular vegetation identified on this exam. Consider JAMA if there is a high degree of clinical suspicion for endocarditis and clinically appropriate. There is no significant valvular heart disease. Great Vessels: The aortic root is normal size. The dimensions of the ascending aorta are normal. The IVC is of normal diameter and collapses greater than 50% with a sniff. This suggests a low right atrial pressure of 3 mm Hg. Pericardium/ Pleura There is no pericardial effusion. IMPRESSION: There is no obvious valvular vegetation identified on this exam. Consider JAMA if there is a high degree of clinical suspicion for endocarditis and clinically appropriate. The left ventricle is normal in size, wall thickness, and systolic function without any focal wall motion abnormalities. The ejection fraction is estimated to be 55-60%. The right ventricle is normal in size and function. The left atrial size is normal. Right atrial size is normal. There is no significant valvular heart disease.
== END 2017-01-02 13:45 | disposition home or self-care (01) ==
LOC: ED SRH 13:33 → TRANS SRH 22:59 → ACUTE2 SRH 22:59 → TRANS SRH 22:59 → ACUTE2 SRH 22:59
PROVIDERS: ADMIT Family Medicine
PROC: 02HV33Z Insertion of Infusion Device into Superior Vena Cava, Percutaneous Approach (ICD-10-PCS; principal; 2016-12-31)
DX: L03.115 Cellulitis of right lower limb (principal); R79.89 Other specified abnormal findings of blood chemistry; F11.20 Opioid dependence, uncomplicated; B18.2 Chronic viral hepatitis C; F17.200 Nicotine dependence, unspecified, uncomplicated; E03.9 Hypothyroidism, unspecified; I50.9 Heart failure, unspecified; I25.10 Atherosclerotic heart disease of native coronary artery without angina pectoris

== ENCOUNTER 2017-01-23 12:47 | Emergency (ER) | payer OTHER ==
[~2017-01-23 12:47] MED LIST: CLEOCIN300 MG PO; METHADONE H5 MG/5 ML; METHADONE HCL10 MG PO; TRAMADOL HCL50 MG PO
--- NOTE | 2017-01-23 13:55 | DIAGNOSTIC IMAGING REPORT ---
PROCEDURE: XR CHEST 1 VIEW INDICATION: CHEST PAIN TECHNIQUE: Portable AP view 01:44 p.m. COMPARISON: Chest 12/31/2016 FINDINGS: Lungs are clear. Heart and mediastinum are normal. Thorax is normal. IMPRESSION: 1. Negative chest.
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
--- NOTE | 2017-01-23 16:24 | ED ORDER SUMMARY ---
..... Patient: FELICIANO BLACKMAN OrderSheet [facility] VisitID: [id number] [address] [place] [address] 46y, F Registration Date/Time: 01/23/2017 ORDER SHEET Weight: 81.6 kg (stated) Allergies: Acetaminophen, Haldol, PCN, Tylenol #3 - rash GENERAL ORDERS: Entertainment Musician (Continuous) (13:01/23/2017 ASchmuck per protocol) (13:09 ASchmuck) Cardiac Panel Stat (13:01/23/2017 ASchmuck per protocol) (Ack 13:11 LNations ER Tech1) (13:17 ASchmuck) Pulse oximeter (13:01/23/2017 ASchmuck per protocol) (13:09 ASchmuck) EKG - ER Stat (13:01/23/2017 ASchmuck per protocol) (13:09 ASchmuck) D-Dimer Urgent (13:22 01/23/2017 Zan Lr) (Ack 13:24 IJurca ER Tech1) (13:24 IJurca ER Tech1) Chest 1V Urgent (13:32 01/23/2017 Zan Lr) (Ack 13:34 LNations ER Tech1) (13:55 ASchmuck) US Venous Left Urgent (15:07 01/23/2017 Zan Lr) (Cancelled: Other15:14 LNations ER Tech1) US Venous Right Urgent (15:07 01/23/2017 Zan Lr) (Cancelled: Other15:14 LNations ER Tech1) US Art Low Ext Doppler Bilat Urgent (15:15 01/23/2017 LNations ER Tech1 verbal order read back to Zan Lr) (Ack 15:15 LNations ER Tech1) (Cancelled: Other15:17 LNations ER Tech1) US Venous Bilat Urgent (15:17 01/23/2017 LNations ER Tech1 verbal order read back to Zan Lr) (Ack 15:18 LNations ER Tech1) (15:55 ASchmuck) MEDICATION ORDERS: IV FLUIDS: IV Saline Lock (13:01/23/2017 ASchmuck per protocol) (13:09 ASchmuck) Toradol IV 30 mg (NOW) (13:33 01/23/2017 Zan Lr) (Ack 13:50 ASchmuck) ([facility] Demerol IV 50 mg (HIGH ALERT MEDICATION, NOW) (15:41 01/23/2017 Zan Lr) (15:55 [facility]) ORDER SHEET NOTES: [Electronically signed by Altagracia Napier (16:48 01/23/2017)] [Electronically signed by Alexi Zaman Dr. (20:15 01/25/2017)] [Electronically locked/signed by Altagracia Napier (16:48 01/23/2017)]
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
--- NOTE | 2017-01-23 16:24 | ED ORDER SUMMARY ---
..... Patient: FELICIANO BLACKMAN OrderSheet [facility] VisitID: [id number] [address] [place] [address] 46y, F Registration Date/Time: 01/23/2017 ORDER SHEET Weight: 81.6 kg (stated) Allergies: Acetaminophen, Haldol, PCN, Tylenol #3 - rash GENERAL ORDERS: Insurance Administrative Assistant (Continuous) (13:01/23/2017 ASchmuck per protocol) (13:09 ASchmuck) Cardiac Panel Stat (13:01/23/2017 ASchmuck per protocol) (Ack 13:11 LNations ER Tech1) (13:17 ASchmuck) Pulse oximeter (13:01/23/2017 ASchmuck per protocol) (13:09 ASchmuck) EKG - ER Stat (13:01/23/2017 ASchmuck per protocol) (13:09 ASchmuck) D-Dimer Urgent (13:22 01/23/2017 Zan Lr) (Ack 13:24 IJurca ER Tech1) (13:24 IJurca ER Tech1) Chest 1V Urgent (13:32 01/23/2017 Zan Lr) (Ack 13:34 LNations ER Tech1) (13:55 ASchmuck) US Venous Left Urgent (15:07 01/23/2017 Zan Lr) (Cancelled: Other15:14 LNations ER Tech1) US Venous Right Urgent (15:07 01/23/2017 Zan Lr) (Cancelled: Other15:14 LNations ER Tech1) US Art Low Ext Doppler Bilat Urgent (15:15 01/23/2017 LNations ER Tech1 verbal order read back to Zan Lr) (Ack 15:15 LNations ER Tech1) (Cancelled: Other15:17 LNations ER Tech1) US Venous Bilat Urgent (15:17 01/23/2017 LNations ER Tech1 verbal order read back to Zan Lr) (Ack 15:18 LNations ER Tech1) (15:55 ASchmuck) MEDICATION ORDERS: IV FLUIDS: IV Saline Lock (13:01/23/2017 ASchmuck per protocol) (13:09 ASchmuck) Toradol IV 30 mg (NOW) (13:33 01/23/2017 Zan Lr) (Ack 13:50 ASchmuck) (13:55 [facility] Demerol IV 50 mg (HIGH ALERT MEDICATION, NOW) (15:41 01/23/2017 Zan Lr) (15:55 [facility]) ORDER SHEET NOTES: [Electronically signed by Altagracia Napier (16:48 01/23/2017)] [Electronically signed by Alexi Zaman Dr. (20:15 01/25/2017)] [Electronically locked/signed by Altagracia Napier (16:48 01/23/2017)]
--- NOTE | 2017-01-25 20:15 | ED MAR SUMMARY ---
..... Medication Administration Record [facility] [address] [place] [address] Patient: FELICIANO BLACKMAN Visit ID: [id number] 46y, F Weight: 81.6 kg Height/Length: 62 in BMI: 32.9 ALLERGIES: Acetaminophen, Haldol, PCN, Tylenol #3 - rash Given 13:55 01/23/2017 Altagracia Napier, Medication Administered: TORADOL [IVP], Dose: 30 mg IVP over 1 minute(s), Site: #1 left forearm. Medication Ordered: Toradol IV 30 mg (NOW). Given 15:55 01/23/2017 Altagracia Napier, Medication Administered: DEMEROL [IVP] (MEPERIDINE HCL), Dose: 50 mg IVP over 30 second(s), Site: #1 left forearm. Medication Ordered: Demerol IV 50 mg (HIGH ALERT MEDICATION, NOW).
--- NOTE | 2017-01-25 20:15 | ED MAR SUMMARY ---
..... Medication Administration Record [facility] [address] [place] [address] Patient: FELICIANO BLACKMAN Visit ID: [id number] 46y, F Weight: 81.6 kg Height/Length: 62 in BMI: 32.9 ALLERGIES: Acetaminophen, Haldol, PCN, Tylenol #3 - rash Given 13:55 01/23/2017 Altagracia Napier, Medication Administered: TORADOL [IVP], Dose: 30 mg IVP over 1 minute(s), Site: #1 left forearm. Medication Ordered: Toradol IV 30 mg (NOW). Given 15:55 01/23/2017 Altagracia Napier, Medication Administered: DEMEROL [IVP] (MEPERIDINE HCL), Dose: 50 mg IVP over 30 second(s), Site: #1 left forearm. Medication Ordered: Demerol IV 50 mg (HIGH ALERT MEDICATION, NOW).
--- NOTE | 2017-01-25 20:15 | ED DISCHARGE INSTRUCTIONS ---
Patient: FELICIANO BLACKMAN General Instructions [facility] VisitID: [id number] [place] [address] 46y, F Registration Date/Time: 01/23/2017 Costochondritis .12 lead EKG performed. Bilateral pedal edema secondary to unknown cause. INSTRUCTIONS Your Current Medications: CONTINUE TAKING THE FOLLOWING MEDICATIONS: Gabapentin Oral : 800mg TID. Lasix Oral : 80 mg. Levothyroxine Sodium Oral : 100 mcg daily. Methadone* : 85mg daily. Spironolactone Oral : 50 mg daily. Prescription Medications: Diclofenac 50 mg tablets: take 1 tablet orally every 8 hours as needed for pain or stiffness. Dispense thirty (30). No refill. Follow-up: Follow up with your doctor in about two days. Call for an appointment. Blood pressure screening was not performed during this visit because the patient has an active diagnosis of hypertension. ADDITIONAL INFORMATION Chest Wall Pain: Costochondritis The chest pain that you have had today is caused by Costochondritis. This condition is due to an inflammation of the cartilage joining the ribs to the breastbone. It is not caused by heart or lung problems. Although the exact cause for costochondritis is not known, it often occurs during times of emotional stress. It can be painful, but it is not dangerous. It usually disappears within one to two weeks, but may recur. Rarely, a more serious condition may cause symptoms similar to costochondritis; therefore, watch for the warning signs listed below. Home Care: If you feel that emotional stress is a cause of your condition, try to identify sources of that stress. It may not be obvious! Learn ways to deal with the stress in your life such as regular exercise, muscle relaxation, meditation, or simply taking time out for yourself. For more information about this, consult your doctor or go to a local bookstore and review books and tapes available on the subject of stress reduction. You may use acetaminophen (Tylenol) or ibuprofen (Motrin, Advil) to control pain, unless another pain medicine was prescribed. [ NOTE: If you have liver disease or ever had a stomach ulcer, talk with your doctor before using these medicines.] The use of heat (hot wet compress or heating pad) with or without local analgesic creams (Deep Heat Rub, [place]) will be helpful to reduce pain. Follow Up with your doctor as directed or sooner if you do not start to improve within the next two days. Get Prompt Medical Attention if any of the following occur: A change in the type of pain: if it feels different, becomes more severe, lasts longer, or spreads into your shoulder, arm, neck, jaw or back Shortness of breath or increased pain with breathing Weakness, dizziness, or fainting Cough with dark colored sputum (phlegm) or blood Abdominal pain Dark red or black stools Fever of 100.4F (38C) or higher, or as directed by your healthcare provider Leg Swelling [Bilateral] Swelling of the feet, ankles and legs is called "Edema." It is due to excess fluid collecting in the tissues. Because of gravity, excess fluid in the body settles in the lowest part. This is why the legs and feet are most affected. Some of the causes for edema include: Disease of the heart (congestive heart failure or "CHF") Prolonged standing or sitting (with the legs in the down position) Infection of the feet or legs Venous Insufficiency (congestion of blood in the veins of the legs) Varicose veins (dilated veins of the lower leg) Garters, or clothing that constricts your legs. (These will cause venous congestion by restricting blood flow.) Some medicines (hormones such as control pills; some blood pressure medicines, such as calcium channel blockers; steroids; some antidepressants such as MAO inhibitors and tricyclics.) Menstrual periods with fluid retention Renal insufficiency (a form of kidney disease) Liver failure (Some swelling is normal, but a sudden increase in leg swelling or weight gain can be a sign of a dangerous complication of ). Medical treatment will depend on the cause of your swelling. Diuretics (water pills) may be prescribed to remove excess fluid. Home Care: Do not wear garments that constrict your legs (such as garters). Elevate your legs while lying or sitting. If infection, injury or recent surgery is the cause for your swelling, stay off your legs as much as possible until symptoms improve. If your doctor says that your leg swelling is caused by venous insufficiency or varicose veins, do not sit or electrical instrument technician one place for long periods of time. Take breaks and walk about every few hours. Brisk walking is a good exercise and helps circulate the congested blood from your leg. Talk to your doctor about the use of support stockings to prevent daytime leg swelling. If your doctor says that heart disease is the cause of your leg swelling, follow a low-salt diet to prevent excess fluid retention. Follow Up with your doctor or as advised by our staff. Get Prompt Medical Attention if any of the following occur: New or worsening shortness of breath or chest pain Increasing swelling in both legs or ankles Swelling of the abdomen Redness, warmth or swelling in one leg Fever of 100.4F (38C) or higher, or as directed by your healthcare provider Yellow color to the skin or eyes Rapid, unexplained weight gain You have been given the following additional information: Chest Wall Pain, Costochondritis Peripheral Edema, Bilateral (Electronically signed by Alexi Zaman Dr. 01/25/2017 20:15)
--- NOTE | 2017-01-25 20:16 | ED MED RECONCILIATION SUMMARY ---
Patient: FELICIANO BLACKMAN Medication Reconciliation Report [facility] VisitID: [id number] [address] [place] [address] 46y, F Registration Date/Time: 01/23/2017 Weight: 81.6 kg Height/Length: 62 in. BMI: 32.9 ALLERGIES: Acetaminophen, Haldol, PCN, Tylenol #3 - rash The patient's Home Medications are listed below: CONTINUE TAKING THE FOLLOWING MEDICATIONS: Gabapentin Oral 800mg TID Lasix Oral 80 mg Levothyroxine Sodium Oral 100 mcg, daily Methadone 85mg daily Spironolactone Oral 50 mg, daily The source(s) of the original Home Medication information: patient The following Medications were given to the patient in the Emergency Department: Toradol [IVP] IVP 30 mg, administered: 01/23/2017 1:55:00 PM Demerol [IVP] IVP 50 mg, administered: 01/23/2017 3:55:00 PM The following Medications were prescribed to the patient: Diclofenac 50 mg tablets: take 1 tablet orally every 8 hours as needed for pain or stiffness. Dispense thirty (30). No refill. -- Alexi Zaman Dr.
--- NOTE | 2017-01-25 20:16 | ED MED RECONCILIATION SUMMARY ---
Patient: FELICIANO BLACKMAN Medication Reconciliation Report [facility] VisitID: [id number] [address] [place] [address] 46y, F Registration Date/Time: 01/23/2017 Weight: 81.6 kg Height/Length: 62 in. BMI: 32.9 ALLERGIES: Acetaminophen, Haldol, PCN, Tylenol #3 - rash The patient's Home Medications are listed below: CONTINUE TAKING THE FOLLOWING MEDICATIONS: Gabapentin Oral 800mg TID Lasix Oral 80 mg Levothyroxine Sodium Oral 100 mcg, daily Methadone 85mg daily Spironolactone Oral 50 mg, daily The source(s) of the original Home Medication information: patient The following Medications were given to the patient in the Emergency Department: Toradol [IVP] IVP 30 mg, administered: 01/23/2017 1:55:00 PM Demerol [IVP] IVP 50 mg, administered: 01/23/2017 3:55:00 PM The following Medications were prescribed to the patient: Diclofenac 50 mg tablets: take 1 tablet orally every 8 hours as needed for pain or stiffness. Dispense thirty (30). No refill. -- Alexi Zaman Dr.
--- NOTE | 2017-01-29 12:20 | DIAGNOSTIC IMAGING REPORT ---
PROCEDURE: US VENOUS - BILATERAL EXT INDICATION: SWELLING TECHNIQUE: Duplex sonography of the deep venous system in both lower extremities was performed. Compression and augmentation techniques were used. COMPARISON: 12/14/2016 venous ultrasound FINDINGS: Each interrogated segment of deep vein from the common femoral vein into the calf veins demonstrates normal compressibility, augmentation and/or color Doppler flow without filling defect. No evidence of significant soft-tissue edema, soft-tissue mass or cyst. IMPRESSION: 1. No deep venous thrombosis in either lower extremity.
== END 2017-01-23 16:47 | disposition home or self-care (01) ==
LOC: ED SRH 12:47
DX: M94.0 Chondrocostal junction syndrome [Tietze] (principal); R60.0 Localized edema; E07.9 Disorder of thyroid, unspecified; I25.2 Old myocardial infarction; Z79.891 Long term (current) use of opiate analgesic; Z79.899 Other long term (current) drug therapy; F17.210 Nicotine dependence, cigarettes, uncomplicated; Z88.0 Allergy status to penicillin; Z88.6 Allergy status to analgesic agent; Z88.5 Allergy status to narcotic agent
CPT/HCPCS: 90100; 90616; 91556; 92610; 92720; 95059

== ENCOUNTER 2017-02-06 13:13 | Emergency (ER) | payer OTHER ==
--- NOTE | 2017-02-06 14:45 | ED ORDER SUMMARY ---
..... Patient: FELICIANO BLACKMAN OrderSheet [facility] VisitID: [id number] [address] [place] [address] 46y, F Registration Date/Time: 02/06/2017 ORDER SHEET Weight: 77.1 kg (stated) Allergies: Acetaminophen, Haldol, PCN, Tylenol #3 - rash GENERAL ORDERS: CBC w Diff Urgent (13:23 02/06/2017 EKoroleva P.A.-C) (Ack 13:25 LNations ER Tech1) (14:47 KKnebel R.N.) CMP Urgent (13:23 02/06/2017 EKoroleva P.A.-C) (Ack 13:25 LNations ER Tech1) (14:47 KKnebel R.N.) PCT (Procalcitonin) Urgent (13:23 02/06/2017 EKoroleva P.A.-C) (Ack 13:25 LNations ER Tech1) (14:47 KKnebel R.N.) BNP Urgent (13:23 02/06/2017 EKoroleva P.A.-C) (Ack 13:25 LNations ER Tech1) (14:47 KKnebel R.N.) MEDICATION ORDERS: - (oxycodone 5 mg po now) (13:32 02/06/2017 EKoroleva P.A.-C) (13:40 KKnebel R.N.) Bactrim DS PO (Tablet 800-160 mg) 1 tab (NOW) (14:43 02/06/2017 EKoroleva P.A.-C) (14:47 KKnebel R.N.) IV FLUIDS: ORDER SHEET NOTES: [Electronically signed by Bev OchoaANetta-C (14:50 02/06/2017)] [Electronically signed by Negro Angel R.N. (15:03 02/06/2017)] [Electronically locked/signed by Negro Angel R.N. (15:03 02/06/2017)]
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
--- NOTE | 2017-02-06 14:45 | ED ORDER SUMMARY ---
..... Patient: FELICIANO BLACKMAN OrderSheet [facility] VisitID: [id number] [address] [place] [address] 46y, F Registration Date/Time: 02/06/2017 ORDER SHEET Weight: 77.1 kg (stated) Allergies: Acetaminophen, Haldol, PCN, Tylenol #3 - rash GENERAL ORDERS: CBC w Diff Urgent (13:23 02/06/2017 EKoroleva P.A.-C) (Ack 13:25 LNations ER Tech1) (14:47 KKnebel R.N.) CMP Urgent (13:23 02/06/2017 EKoroleva P.A.-C) (Ack 13:25 LNations ER Tech1) (14:47 KKnebel R.N.) PCT (Procalcitonin) Urgent (13:23 02/06/2017 EKoroleva P.A.-C) (Ack 13:25 LNations ER Tech1) (14:47 KKnebel R.N.) BNP Urgent (13:23 02/06/2017 EKoroleva P.A.-C) (Ack 13:25 LNations ER Tech1) (14:47 KKnebel R.N.) MEDICATION ORDERS: - (oxycodone 5 mg po now) (13:32 02/06/2017 EKoroleva P.A.-C) (13:40 KKnebel R.N.) Bactrim DS PO (Tablet 800-160 mg) 1 tab (NOW) (14:43 02/06/2017 EKoroleva P.A.-C) (14:47 KKnebel R.N.) IV FLUIDS: ORDER SHEET NOTES: [Electronically signed by Bev OchoaANetta-C (14:50 02/06/2017)] [Electronically signed by Negro Angel R.N. (15:03 02/06/2017)] [Electronically locked/signed by Negro Angel R.N. (15:03 02/06/2017)]
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
--- NOTE | 2017-02-06 15:04 | ED MAR SUMMARY ---
..... Medication Administration Record [facility] [address] [place] [address] Patient: FELICIANO BLACKMAN Visit ID: [id number] 46y, F Weight: 77.1 kg Height/Length: 62 in BMI: 31.1 ALLERGIES: Acetaminophen, Haldol, PCN, Tylenol #3 - rash Given 13:40 02/06/2017 Mariajose Sanchez R.N. Medication Administered: OXYCODONE [PO], Dose: 5 mg Tablets PO. Medication Ordered: - (oxycodone 5 mg po now). Given 14:47 02/06/2017 Mariajose Sanchez RReji Medication Administered: BACTRIM DS [PO] (SULFAMETHOXAZOLE-TMP DS), Dose: 1 tab Tablets PO. Medication Ordered: Bactrim DS PO (Tablet 800-160 mg) 1 tab (NOW).
--- NOTE | 2017-02-06 15:04 | ED DISCHARGE INSTRUCTIONS ---
Patient: FELICIANO BLACKMAN General Instructions [facility] VisitID: [id number] [place] [address] 46y, F Registration Date/Time: 02/06/2017 Cellulitis of the right lower leg and left lower leg. Elevated LFT. INSTRUCTIONS Prescription Medications: Bactrim DS 800 mg / 160 mg: take 1 tablet orally every 12 hours for 10 days. No refill. Substitution is permissible. Oxycodone 5 mg tablets: take 1 orally every 8 hours as needed for pain. (#6 six) Follow-up: Follow up with your doctor in two days for wound check. ADDITIONAL INFORMATION Cellulitis You have an infection of the skin known as cellulitis. This usually starts with a scrape, cut, insect bite, blister or other opening in the skin which becomes infected. This is a serious condition. It must be watched closely to be sure the infection is not spreading. With antibiotic treatment, the size of the red area will gradually shrink in size until the skin returns to normal. This will take 7-10 days. The red area should never increase in size once the antibiotic medicine has been started. Occasionally, an infection will be resistant to one antibiotic and another one will have to be used. Home Care: 1) Limit the use of the affected part, since excess movement can cause the infection to spread. 2) If the infection is on your leg, walk as little as possible during the first few days of the treatment. Keep your leg elevated while sitting. This will reduce swelling. 3) Take all of the antibiotic medicine exactly as directed until it is gone. Be careful not to miss any doses, especially during the first seven days. Follow Up with your doctor or this facility as directed. Check the infected area daily for the warning signs listed below. Get Prompt Medical Attention if any of the following occur: -- Spreading area of redness -- Increasing swelling or pain -- Appearance of pus or drainage -- Fever over 100.4 F (38.0 C) oral, or over 101.4 F (38.6 C) rectal, after two days on antibiotics Sulfamethoxazole, Trimethoprim Oral tablet What is this medicine? SULFAMETHOXAZOLE; TRIMETHOPRIM or SMX-TMP (suhl fuh meth OK talia zohl; trye METH oh prim) is a combination of a sulfonamide antibiotic and a second antibiotic, trimethoprim. It is used to treat or prevent certain kinds of bacterial infections. It will not work for colds, flu, or other viral infections. How should I use this medicine? Take this medicine by mouth with a full glass of water. Follow the directions on the prescription label. Take your medicine at regular intervals. Do not take it more often than directed. Do not skip doses or stop your medicine early. Talk to your weight recorder regarding the use of this medicine in children. Special care may be needed. This medicine has been used in children as young as 2 months of age. What side effects may I notice from receiving this medicine? Side effects that you should report to your doctor or health care director rn as soon as possible: allergic reactions like skin rash or hives, swelling of the face, lips, or tongue breathing problems fever or chills, sore throat irregular heartbeat, chest pain joint or muscle pain pain or difficulty passing urine red pinpoint spots on skin redness, blistering, peeling or loosening of the skin, including inside the mouth unusual bleeding or bruising unusually weak or tired yellowing of the eyes or skin Side effects that usually do not require medical attention (report to your doctor or health care director rn if they continue or are bothersome): diarrhea dizziness headache loss of appetite nausea, vomiting nervousness What may interact with this medicine? Do not take this medicine with any of the following medications: aminobenzoate potassium dofetilide metronidazole This medicine may also interact with the following medications: NIMCO inhibitors like benazepril, enalapril, lisinopril, and ramipril cyclosporine digoxin diuretics indomethacin medicines for diabetes methenamine methotrexate phenytoin potassium supplements pyrimethamine sulfinpyrazone tricyclic antidepressants warfarin What if I miss a dose? If you miss a dose, take it as soon as you can. If it is almost time for your next dose, take only that dose. Do not take double or extra doses. Where should I keep my medicine? Keep out of the reach of children. Store at room temperature between 20 to 25 degrees C (68 to 77 degrees F). Protect from light. Throw away any unused medicine after the expiration date. What should I tell my health care provider before I take this medicine? They need to know if you have any of these conditions: anemia asthma being treated with anticonvulsants if you frequently drink alcohol containing drinks kidney disease liver disease low level of folic acid or wdhvyea-[id number] dehydrogenase poor nutrition or malabsorption porphyria severe allergies thyroid disorder an unusual or allergic reaction to sulfamethoxazole, trimethoprim, sulfa drugs, other medicines, foods, dyes, or preservatives or trying to get breast-feeding What should I watch for while using this medicine? Tell your doctor or health care director rn if your symptoms do not improve. Drink several glasses of water a day to reduce the risk of kidney problems. Do not treat diarrhea with over the counter products. Contact your doctor if you have diarrhea that lasts more than 2 days or if it is severe and watery. This medicine can make you more sensitive to the sun. Keep out of the sun. If you cannot avoid being in the sun, wear protective clothing and use a sunscreen. Do not use sun lamps or tanning beds/booths. You have been given the following additional information: Cellulitis Sulfamethoxazole, Trimethoprim Oral tablet (Electronically signed by Bev Ochoa P.A.-C 02/06/2017 14:50)
--- NOTE | 2017-02-06 15:04 | ED DISCHARGE INSTRUCTIONS ---
Patient: FELICIANO BLACKMAN General Instructions [facility] VisitID: [id number] [place] [address] 46y, F Registration Date/Time: 02/06/2017 Cellulitis of the right lower leg and left lower leg. Elevated LFT. INSTRUCTIONS Prescription Medications: Bactrim DS 800 mg / 160 mg: take 1 tablet orally every 12 hours for 10 days. No refill. Substitution is permissible. Oxycodone 5 mg tablets: take 1 orally every 8 hours as needed for pain. (#6 six) Follow-up: Follow up with your doctor in two days for wound check. ADDITIONAL INFORMATION Cellulitis You have an infection of the skin known as cellulitis. This usually starts with a scrape, cut, insect bite, blister or other opening in the skin which becomes infected. This is a serious condition. It must be watched closely to be sure the infection is not spreading. With antibiotic treatment, the size of the red area will gradually shrink in size until the skin returns to normal. This will take 7-10 days. The red area should never increase in size once the antibiotic medicine has been started. Occasionally, an infection will be resistant to one antibiotic and another one will have to be used. Home Care: 1) Limit the use of the affected part, since excess movement can cause the infection to spread. 2) If the infection is on your leg, walk as little as possible during the first few days of the treatment. Keep your leg elevated while sitting. This will reduce swelling. 3) Take all of the antibiotic medicine exactly as directed until it is gone. Be careful not to miss any doses, especially during the first seven days. Follow Up with your doctor or this facility as directed. Check the infected area daily for the warning signs listed below. Get Prompt Medical Attention if any of the following occur: -- Spreading area of redness -- Increasing swelling or pain -- Appearance of pus or drainage -- Fever over 100.4 F (38.0 C) oral, or over 101.4 F (38.6 C) rectal, after two days on antibiotics Sulfamethoxazole, Trimethoprim Oral tablet What is this medicine? SULFAMETHOXAZOLE; TRIMETHOPRIM or SMX-TMP (suhl fuh meth OK talia zohl; trye METH oh prim) is a combination of a sulfonamide antibiotic and a second antibiotic, trimethoprim. It is used to treat or prevent certain kinds of bacterial infections. It will not work for colds, flu, or other viral infections. How should I use this medicine? Take this medicine by mouth with a full glass of water. Follow the directions on the prescription label. Take your medicine at regular intervals. Do not take it more often than directed. Do not skip doses or stop your medicine early. Talk to your internal combustion engine subassembler regarding the use of this medicine in children. Special care may be needed. This medicine has been used in children as young as 2 months of age. What side effects may I notice from receiving this medicine? Side effects that you should report to your doctor or health youth care specialist as soon as possible: allergic reactions like skin rash or hives, swelling of the face, lips, or tongue breathing problems fever or chills, sore throat irregular heartbeat, chest pain joint or muscle pain pain or difficulty passing urine red pinpoint spots on skin redness, blistering, peeling or loosening of the skin, including inside the mouth unusual bleeding or bruising unusually weak or tired yellowing of the eyes or skin Side effects that usually do not require medical attention (report to your doctor or health youth care specialist if they continue or are bothersome): diarrhea dizziness headache loss of appetite nausea, vomiting nervousness What may interact with this medicine? Do not take this medicine with any of the following medications: aminobenzoate potassium dofetilide metronidazole This medicine may also interact with the following medications: NIMCO inhibitors like benazepril, enalapril, lisinopril, and ramipril cyclosporine digoxin diuretics indomethacin medicines for diabetes methenamine methotrexate phenytoin potassium supplements pyrimethamine sulfinpyrazone tricyclic antidepressants warfarin What if I miss a dose? If you miss a dose, take it as soon as you can. If it is almost time for your next dose, take only that dose. Do not take double or extra doses. Where should I keep my medicine? Keep out of the reach of children. Store at room temperature between 20 to 25 degrees C (68 to 77 degrees F). Protect from light. Throw away any unused medicine after the expiration date. What should I tell my health care provider before I take this medicine? They need to know if you have any of these conditions: anemia asthma being treated with anticonvulsants if you frequently drink alcohol containing drinks kidney disease liver disease low level of folic acid or sngnize-6-joydvgwho dehydrogenase poor nutrition or malabsorption porphyria severe allergies thyroid disorder an unusual or allergic reaction to sulfamethoxazole, trimethoprim, sulfa drugs, other medicines, foods, dyes, or preservatives or trying to get breast-feeding What should I watch for while using this medicine? Tell your doctor or health youth care specialist if your symptoms do not improve. Drink several glasses of water a day to reduce the risk of kidney problems. Do not treat diarrhea with over the counter products. Contact your doctor if you have diarrhea that lasts more than 2 days or if it is severe and watery. This medicine can make you more sensitive to the sun. Keep out of the sun. If you cannot avoid being in the sun, wear protective clothing and use a sunscreen. Do not use sun lamps or tanning beds/booths. You have been given the following additional information: Cellulitis Sulfamethoxazole, Trimethoprim Oral tablet (Electronically signed by Bev Ochoa P.A.-C 02/06/2017 14:50)
--- NOTE | 2017-02-06 15:04 | ED MAR SUMMARY ---
..... Medication Administration Record [facility] [address] ([place]) [place] [address] Patient: FELICIANO BLACKMAN Visit ID: [id number] 46y, F Weight: 77.1 kg Height/Length: 62 in BMI: 31.1 ALLERGIES: Acetaminophen, Haldol, PCN, Tylenol #3 - rash Given 13:40 02/06/2017 Mariajose Sanchez R.N. Medication Administered: OXYCODONE [PO], Dose: 5 mg Tablets PO. Medication Ordered: - (oxycodone 5 mg po now). Given 14:47 02/06/2017 Mariajose Sanchez RReji Medication Administered: BACTRIM DS [PO] (SULFAMETHOXAZOLE-TMP DS), Dose: 1 tab Tablets PO. Medication Ordered: Bactrim DS PO (Tablet 800-160 mg) 1 tab (NOW).
--- NOTE | 2017-02-06 15:05 | ED MED RECONCILIATION SUMMARY ---
Patient: FELCIIANO BLACKMAN Medication Reconciliation Report [facility] VisitID: [id number] [place] [address] 46y, F Registration Date/Time: 02/06/2017 Weight: 77.1 kg Height/Length: 62 in. BMI: 31.1 ALLERGIES: Acetaminophen, Haldol, PCN, Tylenol #3 - rash The patient's Home Medications are listed below: THE FOLLOWING MEDICATIONS NEED TO BE RECONCILED: Clindamycin HCl Oral Gabapentin Oral 800mg TID Lasix Oral 80 mg Levothyroxine Sodium Oral 100 mcg, daily Methadone 85mg daily Spironolactone Oral 50 mg, daily The source(s) of the original Home Medication information: Not obtained. The following Medications were given to the patient in the Emergency Department: Oxycodone [PO] PO 5 mg, administered: 02/06/2017 1:40:00 PM Bactrim DS [PO] PO 1 tab, administered: 02/06/2017 2:47:00 PM The following Medications were prescribed to the patient: Bactrim DS 800 mg / 160 mg: take 1 tablet orally every 12 hours for 10 days. No refill. Substitution is permissible. -- Bev Ochoa P.A.-C Oxycodone 5 mg tablets: take 1 orally every 8 hours as needed for pain.(#6 six) -- Bev Ochoa P.A.-C
--- NOTE | 2017-02-06 15:05 | ED MED RECONCILIATION SUMMARY ---
Patient: FELICIANO BLACKMAN Medication Reconciliation Report [facility] VisitID: [id number] [place] [address] 46y, F Registration Date/Time: 02/06/2017 Weight: 77.1 kg Height/Length: 62 in. BMI: 31.1 ALLERGIES: Acetaminophen, Haldol, PCN, Tylenol #3 - rash The patient's Home Medications are listed below: THE FOLLOWING MEDICATIONS NEED TO BE RECONCILED: Clindamycin HCl Oral Gabapentin Oral 800mg TID Lasix Oral 80 mg Levothyroxine Sodium Oral 100 mcg, daily Methadone 85mg daily Spironolactone Oral 50 mg, daily The source(s) of the original Home Medication information: Not obtained. The following Medications were given to the patient in the Emergency Department: Oxycodone [PO] PO 5 mg, administered: 02/06/2017 1:40:00 PM Bactrim DS [PO] PO 1 tab, administered: 02/06/2017 2:47:00 PM The following Medications were prescribed to the patient: Bactrim DS 800 mg / 160 mg: take 1 tablet orally every 12 hours for 10 days. No refill. Substitution is permissible. -- Bev Ochoa P.A.-C Oxycodone 5 mg tablets: take 1 orally every 8 hours as needed for pain.(#6 six) -- Bev Ochoa P.A.-C
== END 2017-02-06 14:58 | disposition home or self-care (01) ==
LOC: ED SRH 13:13
DX: L03.115 Cellulitis of right lower limb (principal); L03.116 Cellulitis of left lower limb; R79.89 Other specified abnormal findings of blood chemistry; Z79.899 Other long term (current) drug therapy; Z88.8 Allergy status to other drugs, medicaments and biological substances; Z88.0 Allergy status to penicillin
CPT/HCPCS: 90074; 90100; 91320; 91643; 93004; 95059